=== PATIENT | female | born 1970 | race African-American/Black ===

== ENCOUNTER 2016-09-09 06:13 | Observation (INO) | payer OTHER ==
[~2016-09-09 06:13] MED LIST: Buffered Lidocaine 1% SYR 3ML* 3 ML/SYR SYRINGE INTRADERM ONE
[2016-09-09] MEDS ORDERED: Scopolamine 1.5 mg* PATCH ONE (06:48)
[2016-09-09] MEDS ORDERED: Dexamethasone IV* 4 MG/ML 1 ML (4 MG) ONE (06:48)
[2016-09-09] MEDS ORDERED: ceFAZolin 2 GM PREMIX (*) 2 GM/50 ML BAG IVPB ONE (06:48)
[2016-09-09] MEDS ORDERED: Ondansetron INJ* 2 MG/ML VIAL ONE (06:48)
[2016-09-09] MEDS ORDERED: Heparin VIAL(*) 5000 UNITS/ML VIAL (FIVE THOUSAND) ONE ×2 (06:48→15:18)
[2016-09-09] MEDS ORDERED: Midazolam* 1 MG/ML 2 ML VIAL (2 MG) ONE ×2 (07:29→08:09)
[2016-09-09] MEDS ORDERED: fentaNYL* 50 MCG/ML 2 ML VIAL (100 MCG VIAL) ONE ×6 (07:29→15:50)
[2016-09-09] MEDS ORDERED: Rocuronium* 10 MG/ML VIAL ONE (08:09)
[2016-09-09] MEDS ORDERED: Bupivacaine 0.25% EPI 200,000* 30 ML SDV ONE (08:43)
[2016-09-09] MEDS ORDERED: Famotidine IV* 10 MG/ML 2 ML (20 mg) ONE (09:27)
[2016-09-09] MEDS ORDERED: EPHEDrine (Pressors)* 50 MG/ML VIAL ONE (09:27)
[2016-09-09] MEDS ORDERED: Lidocaine 2% PF * 5 ML VIAL ONE (09:27)
[2016-09-09] MEDS ORDERED: Propofol* 10 MG/ML 20 ML BTL IV PUSH ONE (09:27)
[2016-09-09] MEDS ORDERED: Ondansetron INJ* 2 MG/ML VIAL IV PRN ×2 (09:43→16:27)
[2016-09-09] MEDS ORDERED: Levalbuterol 0.63MG/3ML NEB INH PRN (09:43)
[2016-09-09] MEDS ORDERED: Nalbuphine* 20 MG/ML 1 ML VIAL IV PRN (09:43)
[2016-09-09] MEDS ORDERED: PROCHLORPERAZINE INJ 5 MG/ML 2 ML VIAL IV PRN (09:43)
[2016-09-09] MEDS ORDERED: DiMENhydriNATE IV* 50 MG/ML VIAL IV PUSH PRN (09:43)
[2016-09-09] MEDS ORDERED: Acetaminophen TAB* 325 MG PO PRN ×2 (09:43→16:26)
[2016-09-09] MEDS ORDERED: Gabapentin CAP(*) 300 MG PO SCH (10:00)
[2016-09-09] MEDS ORDERED: oxyCODONE/Acetamin 5/325 MG* TAB ONE ×2 (12:54→13:10)
[2016-09-09] MEDS: fentaNYL* 50 MCG/ML 2 ML VIAL (100 MCG VIAL) IV PRN ×5 (13:03→15:45)
[2016-09-09] MEDS: oxyCODONE/Acetamin 5/325 MG* TAB PO PRN ×4 (13:04→22:52)
[2016-09-09] MEDS ORDERED: oxyCODONE TAB* 5 MG TAB ONE ×2 (13:49→14:01)
[2016-09-09] MEDS: oxyCODONE TAB* 5 MG TAB PO PRN ×2 (13:50→14:02)
[2016-09-09] MEDS ORDERED: diPHENhydraMINE IV* 50 MG/ML 1 ml VIAL (BENADRYL) IV PRN ×2 (16:26)
[2016-09-09] MEDS ORDERED: diPHENhydraMINE PO* 25 MG PO PRN ×2 (16:27)
[2016-09-09] MEDS ORDERED: Al Hydrox/Mg Hydrox/Simet LIQ* 30 ML UDC PO PRN (16:28)
[2016-09-09] MEDS ORDERED: Magnesium Hydroxide LIQ* 30 ML UDC PO PRN (16:28)
[2016-09-09] MEDS ORDERED: NS 0.9% 1000 ML* 1,000 ML IV SCH (16:30)
[2016-09-09] MEDS ORDERED: HYDROmorphone INJ* 1 MG/ML CARPUJECT SYRINGE ONE (16:32)
[2016-09-09] MEDS: HYDROmorphone INJ* 1 MG/ML CARPUJECT SYRINGE IV PRN ×3 (16:39→22:56)
[2016-09-09] MEDS ORDERED: Ketoconazole 2 % CREAM (NF) 30 GM TUBE TOPICAL PRN (17:01)
[2016-09-09] MEDS ORDERED: ALPRAZolam TAB* 0.5 MG PO PRN (17:05)
[2016-09-09] MEDS ORDERED: SELENIUM SULFIDE 2.5% TOPICAL PRN (17:05)
[2016-09-09] MEDS ORDERED: Levalbuterol HFA INHALER* 1 PUFF MDI INH PRN (17:05)
[2016-09-09] MEDS: Heparin VIAL(*) 5000 UNITS/ML VIAL (FIVE THOUSAND) SUBCUT SCH (22:51)
[2016-09-10] MEDS: HYDROmorphone INJ* 1 MG/ML CARPUJECT SYRINGE IV PRN ×6 (01:00→11:50)
[2016-09-10] MEDS: oxyCODONE TAB* 5 MG TAB PO PRN ×3 (02:56→11:47)
[2016-09-10] MEDS: oxyCODONE/Acetamin 5/325 MG* TAB PO PRN ×3 (02:57→11:47)
[2016-09-10] MEDS: Heparin VIAL(*) 5000 UNITS/ML VIAL (FIVE THOUSAND) SUBCUT SCH (05:05)
[2016-09-10 08:05] VITALS: BP 102/64
[2016-09-10] MEDS ORDERED: Multivitamins/Minerals TAB PO SCH (09:00)
[2016-09-10] MEDS ORDERED: Ferrous Sulfate TAB* 325 MG PO SCH (09:00)
[2016-09-10] MEDS ORDERED: Atenolol TAB* 25 MG PO SCH (09:00)
[2016-09-10] MEDS ORDERED: Citalopram TAB* 20 MG PO SCH (09:00)
[2016-09-10] MEDS ORDERED: Ascorbic Acid TAB* 500 MG PO SCH (09:00)
--- NOTE | 2016-09-26 04:10 | DS ---
CC: Dr. Hollis Lugo DISCHARGE SUMMARY: DATE OF ADMISSION: 09/09/16 DATE OF DISCHARGE: 09/10/16 PRIMARY DIAGNOSIS: Bilateral symptomatic breast hypertrophy. SECONDARY DIAGNOSIS: Postoperative pain. SUMMARY: The patient is a 45-year-old woman who underwent bilateral reduction mammoplasty for treat ment of bilateral symptomatic breast hypertrophy on 09/09/16. Over 1000 g was removed from each isra st. The patient was on preoperative Percocet because of chronic pain. Postoperatively, she had dif ficulty obtaining adequate pain control in the recovery room and for this reason was kept overnight in the hospital for observation because she was requiring significant doses of intravenous narcotics to obtain adequate pain control. By the following morning, her pain was under satisfactory control and she was able to be discharged home on oral pain medication with arrangements made for followup in the office. Dr. Hollis Lugo, her primary care physician, is managing her postoperative pain a s an outpatient. She was given instructions including activity level, wound care, medication, and fo [facility] [id number]/[facility] #: [id number]
== END 2016-09-10 14:00 | disposition home or self-care (01) ==
LOC: OR 06:13 → INTOOBSV 16:09 → SSU 16:09
PROVIDERS: ADMIT Plastic Surgery; ATTEND Plastic Surgery
PROC: 0HBV0ZZ Excision of Bilateral Breast, Open Approach (ICD-10-PCS; principal; 2016-09-09 07:45)
DX: N62 Hypertrophy of breast (principal); M17.0 Bilateral primary osteoarthritis of knee; M47.9 Spondylosis, unspecified; Z86.718 Personal history of other venous thrombosis and embolism; Z88.8 Allergy status to other drugs, medicaments and biological substances; Z79.899 Other long term (current) drug therapy
CPT/HCPCS: 88305; 96372; A9270-GY; G0378; J0690; J1100; J1170; J1644; J2250; J2405; J2704; J3010

== ENCOUNTER 2016-09-17 20:04 | Emergency (ER) | payer OTHER ==
[2016-09-17] MEDS ORDERED: HYDROmorphone INJ* 2 MG/ML CARPUJECT SYRINGE IM ONE (22:27)
[2016-09-17] MEDS ORDERED: Ondansetron ODT TAB* 4 MG PO ONE (22:27)
[2016-09-17] MEDS ORDERED: HYDROmorphone TAB* 4 MG PO ONE (22:28)
[2016-09-17] MEDS ORDERED: Ondansetron INJ* 2 MG/ML VIAL ONE (22:40)
--- NOTE | 2016-09-17 23:06 | ED ---
Castro Velazquez Alok, scribed for Armen Stanton MD on 09/17/16 at 2224 . Complex/Multi-Sys Presentation - HPI Summary HPI Summary: 45 y/o female presents to the ED with a complaint of of nausea and chills following a mammaplasty one week ago. Dr. Acevedo was her surgeon. Pt states that dark, yellow and green drainage was found after removing her dressings. Pt denies fever. She also adds that she ran out of her Dilaudid prescription this week as well. - History Of Current Complaint Chief Complaint: EDNauseaVomitDiarrh Time Seen by Provider: 09/17/16 21:31 Hx Obtained From: Patient Onset/Duration: Gradual Onset, Lasting Hours, Still Present Timing: Constant Severity Currently: Moderate Severity Initially: Moderate Location: Negative Aggravating Factor(s): none Alleviating Factor(s): none Associated Signs And Symptoms: Positive: Nausea, Other - chills. Negative: Fever - Allergies/Home Medications Allergies/Adverse Reactions: Allergies Allergy/AdvReac Type Severity Reaction Status Date / Time Shellfish Allergy Allergy Severe Anaphylatic Verified 09/09/16 06:56 Shock Ketorolac Tromethamine Allergy Intermediate Itching Verified 09/09/16 06:56 [From Toradol] Tramadol Allergy Intermediate Itching Verified 09/09/16 06:56 PMH/Surg Hx/FS Hx/Imm Hx Endocrine/Hematology History: Denies: Hx Anticoagulant Therapy, Hx Blood Disorders Cardiovascular History: Reports: Hx Coronary Artery Disease - HEART CATH 2000 [place], FOLLOWED BY DR LUGO, Other Cardiovascular Problems/Disorders - HX VTACH, CARDIAC CATH, BLOOD CLOTS DURING LL 1990 Denies: Hx Pacemaker/ICD Respiratory History: Reports: Hx Asthma - INHALER PRN, WILL BRING DOS GI History: Reports: Hx Gastroesophageal Reflux Disease - not active at this time, Other GI Disorders - HX OF STOMACH ULCER, UMBILICAL HERNIA History: Reports: Other Problems/Disorders - PARTIAL HYSTERECTOMY 2009 Musculoskeletal History: Reports: Hx Arthritis - BACK, HANDS, HIPS, RIGHT KNEE, Hx Back Problems, Hx Bursitis Sensory History: Reports: Hx Contacts or Glasses Denies: Hx Hearing Aid Opthamlomology History: Reports: Hx Contacts or Glasses Neurological History: Reports: Other Neuro Impairments/Disorders - 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 PARTIAL HYSTERECTOMY 2008 [place]. RIGHT KNEE REPAIR 2006 [facility] [place]. RIGHT KNEE REPAIR 2007, 2008 [place]. UMBILICAL HERNIA REPAIR 2009 [facility] [place]. CARDIAC CATHERIZATION 2000 [place] Hx Anesthesia Reactions: No - Immunization History Date of Tetanus Vaccine: UTD Date of Influenza Vaccine: UTD Infectious Disease History: No Infectious Disease History: Denies: Hx Clostridium Difficile, Hx Hepatitis, Hx Human Immunodeficiency Virus (HIV), Hx of Known/Suspected MRSA, Hx Shingles, History Other Infectious Disease, Traveled Outside the in Last 30 Days - Family History Family History: No FHx breast cancer - Social History Lives: With Family - Alcohol Use: Rare Alcohol Amount: 2 BEERS/MONTH Hx Substance Use: No Substance Use Type: Reports: None Hx Tobacco Use: No Smoking Status (MU): Never Smoked Tobacco Have You Smoked in the Last Year: No Review of Systems Positive: Chills. Negative: Fever Positive: Nausea Positive: Other - discharge from surgical site All Other Systems Reviewed And Are Negative: Yes Physical Exam - Summary Physical Exam Summary: General: Well-appearing, no pain distress Skin: Warm, color reflects adequate perfusion, dry. Surgical site: right breast no drainage, edges well approximated, no erythema, below areola portion of wound glue removed Head/Face: Normal Eyes: EOMI, BAO ENT: Normal Neck: Supple, nontender Respiratory: CTA, breath present Cardiovascular: RRR Abdominal: Nontender, soft Bowel: Present Musc: Normal; strength/ROM intact Neuro: Normal; sensory/motor intact, A&Ox3 Psych: Affect/mood appropriate Triage Information Reviewed: Yes Vital Signs On Initial Exam: Initial Vitals Temp Pulse Resp BP Pulse Ox 98.5 F 70 20 116/73 99 09/17/16 20:07 09/17/16 20:07 09/17/16 20:07 09/17/16 20:07 09/17/16 20:07 Vital Signs Reviewed: Yes Diagnostics - Vital Signs Vital Signs Temp Pulse Resp BP Pulse Ox 09/17/16 20:07 98.5 F 70 20 116/73 99 - Laboratory Lab Statement: Any lab studies that have been ordered have been reviewed, and results considered in the medical decision making process. Complex Multi-Symp Course/Dx Assessment/Plan: SURGICAL WOUND IS INTACT/NO DRAINAGE/NO ODOR/NO ERYTHEMA. SOME OF THE SURGICAL WOUND GLUE HAS BEEN PULLED UP. DISCUSSED WITH DR ACEVEDO. NO FEVER. NO LABS AT THIS TIME. F/U 09/19/[address] ACEVEDO. DISCHARGE HOME STABLE. RX DILAUDID PO WRITTEN. - Diagnoses Provider Diagnoses: Pain at surgical site - Physician Notifications Discussed Care Of Patient With: Dr. Acevedo (Plastic surgeon) @ 22:09 - discussed state of pt and follow up appointment with Dr. Acevedo in two days Discharge - Discharge Plan Condition: Stable Disposition: HOME Prescriptions: HYDROmorphone TAB* [Dilaudid TAB*] 4 mg PO Q6H PRN #15 tab MDD 4 PRN Reason: Pain Ondansetron ODT TAB* [Zofran Odt TAB*] 4 mg PO Q6H PRN #10 tab.odt PRN Reason: Nausea Patient Education Materials: Chronic Wound Care (ED) Referrals: Hollis Lugo MD [Primary Care Provider] - Additional Instructions: FOLLOW UP WITH YOUR PRIMARY CARE DOCTOR. FOLLOW UP WITH DR ACEVEDO. CALL HIS OFFICE TOMORROW TO BE SEEN ON August. CONTINUE TO KEEP THE WOUNDS CLEAN WITH SOAP AND WATER AND APPLY ANTIBIOTIC OINTMENT. RETURN TO THE EMERGENCY DEPARTMENT FOR ANY WORSENING OF YOUR CONDITION OR QUESTIONS OR CONCERNS. The documentation as recorded by the Castro romo Alok accurately reflects the service I personally performed and the decisions made by me, Armen Stanton MD.
[2016-09-18 04:07] VITALS: BP 118/70
== END 2016-09-17 22:53 | disposition home or self-care (01) ==
LOC: ED 20:04
DX: R11.0 Nausea (principal); R68.83 Chills (without fever)
CPT/HCPCS: 96374; 96375; 99282; A9270-GY; J1170; J2405

== ENCOUNTER 2016-09-29 17:58 | Emergency (ER) | payer OTHER ==
--- NOTE | 2016-09-29 18:49 | RAD ---
INDICATION: Palpitations COMPARISON: July 15, 2016 TECHNIQUE: An AP portable view obtained at 1830 hours is submitted. FINDINGS: Bones/Soft Tissues: There are no acute bony findings. Cardiomediastinal: The cardiomediastinal silhouette is normal. Lungs: There are no infiltrates. Pleura: There are no pleural effusions. Other: None IMPRESSION: NO ACTIVE DISEASE.
[2016-09-29 19:05] LABS: Hematocrit 41 % (35-47); Hemoglobin 12.8 g/dl (12.0-16.0); Mean Corpuscular HGB Conc 32 g/dl (31-36); Mean Corpuscular Hemoglobin 27 pg (27-31); Mean Corpuscular Volume 84 fL (80-97); Mean Platelet Volume 9 um3 (7.4-10.4); Red Blood Count 4.81 10^6/ul (4.0-5.4); Red Cell Distribution Width 14 % (10.5-15); White Blood Count 6.4 10^3/ul (3.5-10.8)
[2016-09-29 19:29] LABS: Albumin 4.1 g/dL (3.2-5.2); BUN/Creatinine Ratio 12.8 (8-20); Calcium 9.3 mg/dL (8.6-10.3); EGFR African American 82.4 (>60); EGFR Non-African American 64.1 (>60); Globulin 3.4 g/dL (2-4); Potassium 3.9 mmol/L (3.5-5.0); Total Bilirubin 0.3 mg/dL (0.2-1.0); Total Protein 7.5 g/dL (6.4-8.9)
[2016-09-29] MEDS ORDERED: oxyCODONE/Acetamin 10/325(NF) TAB PO PRN (19:37)
[2016-09-29 19:53] LABS: T4 7.72 g/dL (6.09-12.23)
[2016-09-29 19:54] LABS: TSH (Thyroid Stimulating Horm) 2.11 mcIU/mL (0.34-5.60)
[2016-09-29] MEDS ORDERED: oxyCODONE/Acetamin 5/325 MG* TAB ONE (20:03)
[2016-09-29] MEDS ORDERED: oxyCODONE TAB* 5 MG TAB ONE (20:03)
[2016-09-29] MEDS ORDERED: LORazepam INJ* 2 MG/ML 1 ML VIAL IV PUSH ONE ×2 (20:17→21:34)
[2016-09-29] MEDS ORDERED: Iohexol 350* (CONTRAST) 500 ML MDV IV ONE (20:43)
[2016-09-29 20:59] VITALS: BP 126/67
[2016-09-29] MEDS ORDERED: oxyCODONE/Acetamin 5/325 MG* TAB PO PRN (21:18)
[2016-09-29] MEDS ORDERED: oxyCODONE TAB* 5 MG TAB PO PRN (21:18)
--- NOTE | 2016-09-29 21:46 | RAD ---
INDICATION: Chest pain. Short of breath. Evaluate for pulmonary embolus. COMPARISON: CTA chest March 15, 2013. TECHNIQUE: Axial source images were obtained from the thoracic inlet to the hemidiaphragms following administration of [address] angiographic technique was utilized. Coronal and sagittal reconstructed images were acquired. CHEST FINDINGS: Neck/thyroid: The visualized neck to include the thyroid appear normal. Chest wall: There are no acute abnormalities of the bony thorax. There are patchy parenchymal asymmetries in each breast with skin thickening. By report the patient has had reduction mammoplasty within the last month which likely accounts for these findings. There is no supraclavicular, infraclavicular, or axillary lymphadenopathy. Lungs : There are no pulmonary parenchymal masses or infiltrates. The pulmonary interstitium appears normal. There are no endobronchial lesions. Cardiomediastinal structures: There is no CT evidence of acute pulmonary embolic disease. The heart is normal in size. There is no pericardial effusion. There is no evidence of aortic aneurysm or dissection. There is no mediastinal or hilar adenopathy. The esophagus appears normal. Pleura : There are no pleural-based masses or effusions. Other: None. IMPRESSION: NO CT EVIDENCE OF ACUTE PULMONARY EMBOLIC DISEASE.
--- NOTE | 2016-09-30 10:25 | ED ---
Antonette Velazquez Erika, scribed for Luis Mullins MD on 09/29/16 at 1837 . Palpitations / Dysrhythmia - HPI Summary HPI Summary: Patient is a 45-year-old female presenting to the ED with a CC of palpitations. Patient reports that palpitations started at 02:00 today, and resolved after 30 minutes. She used her blood pressure machine, which showed that she did not have an irregular rhythm. Patient denies associated lightheadedness, SOB, and chest pain. Pt also reports spasms in her scalp and back. She reports that she has not been sleeping well due to loud neighbors. Pt has also been lying down more than usual due to breast reduction surgery on 09/09/2016. She was taking blood thinners after the surgery, but is not anymore. Hx V Tach. Hx anxiety - took Xanax today, which did not alleviate the symptoms. - History of Current Complaint Chief Complaint: EDDysrhythmPalp Time Seen by Provider: 09/29/16 18:17 Hx Obtained From: Patient, Family/Dimension Quarry Supervisor - Onset/Duration: Gradual Onset, Lasting Minutes - 30 minutes, Resolved Timing: Constant Severity Initially: Moderate Severity Currently: None Character: Pounding Associated Signs & Symptoms: Negative - Allergy/Home Medications Allergies/Adverse Reactions: Allergies Allergy/AdvReac Type Severity Reaction Status Date / Time Shellfish Allergy Allergy Severe Anaphylatic Verified 09/09/16 06:56 Shock Ketorolac Tromethamine Allergy Intermediate Itching Verified 09/09/16 06:56 [From Toradol] Tramadol Allergy Intermediate Itching Verified 09/09/16 06:56 PMH/Surg Hx/FS Hx/Imm Hx Endocrine/Hematology History: Denies: Hx Anticoagulant Therapy, Hx Blood Disorders Cardiovascular History: Reports: Hx Coronary Artery Disease - HEART CATH 2000 [place], FOLLOWED BY DR LUGO, Other Cardiovascular Problems/Disorders - HX VTACH, CARDIAC CATH, BLOOD CLOTS DURING [place] 1990 Denies: Hx Pacemaker/ICD Respiratory History: Reports: Hx Asthma - INHALER PRN, WILL BRING DOS GI History: Reports: Hx Gastroesophageal Reflux Disease - not active at this time, Other GI Disorders - HX OF STOMACH ULCER, UMBILICAL HERNIA History: Reports: Other Problems/Disorders - PARTIAL HYSTERECTOMY 2008 Musculoskeletal History: Reports: Hx Arthritis - BACK, HANDS, HIPS, RIGHT KNEE, Hx Back Problems, Hx Bursitis Sensory History: Reports: Hx Contacts or Glasses Denies: Hx Hearing Aid Opthamlomology History: Reports: Hx Contacts or Glasses Neurological History: Reports: Other Neuro Impairments/Disorders - 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 PARTIAL HYSTERECTOMY 2008 [place]. RIGHT KNEE REPAIR 2006 [facility] [place]. RIGHT KNEE REPAIR 2007, 2008 [place]. UMBILICAL HERNIA REPAIR 2009 [facility] [place]. CARDIAC CATHERIZATION 2000 [facility] Anesthesia Reactions: No - Immunization History Date of Tetanus Vaccine: UTD Date of Influenza Vaccine: UTD Infectious Disease History: No Infectious Disease History: Denies: Hx Clostridium Difficile, Hx Hepatitis, Hx Human Immunodeficiency Virus (HIV), Hx of Known/Suspected MRSA, Hx Shingles, History Other Infectious Disease, Traveled Outside the [place] in Last 30 Days - Family History Family History: No FHx breast cancer - Social History Occupation: Employed Full-time Lives: With Family Alcohol Use: Rare Alcohol Amount: 2 BEERS/MONTH Hx Substance Use: No Substance Use Type: Reports: None Hx Tobacco Use: No Smoking Status (MU): Never Smoked Tobacco Have You Smoked in the Last Year: No Review of Systems Positive: Palpitations. Negative: Chest Pain Negative: Shortness Of Breath Musculoskeletal: Other - spasms in scalp and back Positive: Anxious - with lack of sleep All Other Systems Reviewed And Are Negative: Yes Physical Exam - Summary Physical Exam Summary: VITAL SIGNS: Reviewed. GENERAL: Patient is a well developed and nourished female who is lying comfortable in the stretcher. Patient is not in any acute respiratory distress. HEAD AND FACE: No signs of trauma. No ecchymosis, hematomas or skull depressions. No sinus tenderness. EYES: PERRLA, EOMI x 2, No injected conjunctiva, no nystagmus. EARS: Hearing grossly intact. Ear canals and tympanic membranes are within normal limits. MOUTH: Oropharynx within normal limits. NECK: Supple, trachea is midline, no adenopathy, no JVD, no carotid bruit, no c- spine tenderness, neck with full ROM. CHEST: Symmetric, no tenderness at palpation LUNGS: Clear to auscultation bilaterally. No wheezing or crackles. CVS: Regular rate and rhythm, S1 and S2 present, no murmurs or gallops appreciated. ABDOMEN: Soft, non-tender. No signs of distention. No rebound no guarding, and no masses palpated. Bowel sounds are normal. EXTREMITIES: FROM in all major joints, no edema, no cyanosis or clubbing. NEURO: Alert and oriented x 3. No acute neurological deficits. Speech is normal and follows commands. SKIN: Dry and warm Triage Information Reviewed: Yes Vital Signs On Initial Exam: Initial Vitals Temp Pulse Resp BP Pulse Ox 98.3 F 58 16 111/72 100 09/29/16 18:09 09/29/16 18:09 09/29/16 18:09 09/29/16 18:09 09/29/16 18:09 Vital Signs Reviewed: Yes Diagnostics - Vital Signs Vital Signs Temp Pulse Resp BP Pulse Ox 09/29/16 18:09 98.3 F 58 16 111/72 100 - Laboratory Result Diagrams: 09/29/16 18:50 09/29/16 18:50 Lab Statement: Any lab studies that have been ordered have been reviewed, and results considered in the medical decision making process. - Radiology CXR Radiology Interpretation Completed By: Radiologist - IMPRESSION: NO ACTIVE DISEASE. - CT CTA Chest CT Interpretation Completed By: Radiologist - IMPRESSION: NO CT EVIDENCE OF ACUTE PULMONARY EMBOLIC DISEASE. - EKG 17:59 Cardiac Rate: NL - at 62 bpm EKG Rhythm: Sinus Rhythm EKG Interpretation: No ST elevation Re-Evaluation - Re-Evaluation First Eval Re-Evaluation Time: 20:49 Comment: Discussed lab results and need for Chest CTA Course/Dx - Course Assessment/Plan: Patient is a 45-year-old female presenting to the ED with a CC of palpitations. Patient reports that palpitations started at 02:00 today, and resolved after 30 minutes. She used her blood pressure machine, which showed that she did not have an irregular rhythm. Patient denies associated lightheadedness, SOB, and chest pain. Pt also reports spasms in her scalp and back. She reports that she has not been sleeping well due to loud neighbors. Pt has also been lying down more than usual due to breast reduction surgery on . She was taking blood thinners after the surgery, but is not anymore. Hx V Tach. Hx anxiety - took Xanax today, which did not alleviate the symptoms. Bloodwork WNL except for a D dimer of 744. I decided to the D-dimer since the pt is having palpitations and had a recent surgery. CXR shows no acute pathology and EKG is NSR without ST elevation. Chest CT is negative for a PE. The pt has requested pain medication that she usually takes at home, which is Percocet 10mg, and she requested Ativan twice and was given 1 mg each time. At this point, since there are no abnormal findings, the pt will be discharged home with follow up from her PCP. The pt was instructed to return if she develops chest pain, SOB, dizziness, fevers, or chills. Patient understands and agrees. She is hemodynamically stable and A&Ox3. I discussed all the findings and test results with the patient. Patient was instructed to return to the emergency room immediately if any of the symptoms return or worsens. Plan of care was discussed with the patient and understands and agrees. All questions were answered at patient satisfaction. There were no further complaints or concerns. Lung exam before discharge: CTA B/L. Good air exchange. No wheezing or crackles heard. CVS: S1 and S2 present. No murmurs appreciated. Patient is alert and oriented x 3. Patient is hemodynamically stable. Patient will be discharged home with follow up ribbon hand in the next 2-3 days - Diagnoses Differential Diagnosis/HQI/PQRI: Positive: V-Tach, Other - arrythmia Provider Diagnoses: Palpitations, Anxiety Discharge - Discharge Plan Condition: Stable Disposition: HOME Patient Education Materials: Palpitations (ED), Anxiety (ED) Referrals: Hollis Lugo MD [Primary Care Provider] - Additional Instructions: Please follow up with your PCP. The documentation as recorded by the Antonette romo Erika accurately reflects the service I personally performed and the decisions made by me, Luis Mullins MD.
== END 2016-09-29 22:06 | disposition home or self-care (01) ==
LOC: ED 17:58
DX: R00.2 Palpitations (principal); F41.9 Anxiety disorder, unspecified
CPT/HCPCS: 36415; 71010; 71275; 80053; 82553; 83605; 83880; 84436; 84443; 84484; 85025; 85379; 93005; 96374; 99283; A9270-GY; J2060; Q9967

== ENCOUNTER 2016-11-18 13:24 | Emergency (ER) | payer OTHER ==
[2016-11-18 15:14] VITALS: BP 132/79
--- NOTE | 2016-11-18 15:42 | UC ---
Ear Complaint HPI - HPI Summary HPI Summary: 2 DAYS OF BILATERAL EAR DISCOMFORT. r>l. HEARING IS MUFFLED. NO DRAINAGE. ALSO HAS SINUS PRESSURE, MILD KIM AND RHINITIS. NO FEVER, COUGH OR ST. NO N/V/D. - History of Current Complaint Chief Complaint: UCEar Stated Complaint: EARS,CONGEST, Time Seen by Provider: 11/18/16 15:17 Hx Obtained From: Patient Onset/Duration: Gradual Onset, Lasting Days, Still Present Severity Initially: Moderate Severity Currently: Moderate Pain Intensity: 6 Pain Scale Used: 0-10 Numeric Aggravating Factors: Nothing Alleviating Factors: Nothing Associated Signs/Symptoms: Positive: Hearing Loss - MUTED, URI Symptoms. Negative: Discharge, Foreign Body Sensation, Trauma to Ear - Allergies/Home Medications Allergies/Adverse Reactions: Allergies Allergy/AdvReac Type Severity Reaction Status Date / Time Shellfish Allergy Allergy Severe Anaphylatic Verified 11/18/16 15:06 Shock Ketorolac Tromethamine Allergy Intermediate Itching Verified 11/18/16 15:06 [From Toradol] Tramadol Allergy Intermediate Itching Verified 11/18/16 15:06 PMH/Surg Hx/FS Hx/Imm Hx Cardiovascular History Of: Reports: Cardiac Disorders - Vtach Denies: Pacemaker/ICD Respiratory History Of: Reports: Asthma - INHALER, Bronchitis - HX OF, NOT RECENTLY Psychological History Of: Reports: Anxiety, Depression Denies: Schizophrenia Other History Of: Negative For: Anticoagulant Therapy - Surgical History Surgical History: Yes Surgery Procedure, Year, and Place: CARDIAC CATHERIZATION 2000 [place]. PARTIAL HYSTERECTOMY 2008 [place]. RIGHT KNEE REPAIR 2006 [facility] [place]. RIGHT KN[place] REPAIR 2007, 2009 [place]. UMBILICAL HERNIA REPAIR 2009 [facility] [place]. CARDIAC CATHERIZATION 2000 [place] - Family History Known Family History: Positive: Hypertension Family History: No FHx breast cancer - Social History Alcohol Use: Occasionally Alcohol Amount: 2 BEERS/MONTH Substance Use Type: None Smoking Status (MU): Never Smoked Tobacco Have You Smoked in the Last Year: No - Immunization History Most Recent Influenza Vaccination: 2016 Most Recent Tetanus Shot: 2009 Most Recent Pneumonia Vaccination: 2016 Review of Systems Constitutional: Negative ENT: Ear Ache, Nasal Discharge Respiratory: Negative Cardiovascular: Negative Neurological: Headache All Other Systems Reviewed And Are Negative: Yes Physical Exam Triage Information Reviewed: Yes Appearance: Well-Appearing, No Pain Distress, Well-Nourished Vital Signs: Initial Vital Signs Temp 97.3 F 11/18/16 15:09 Pulse 57 11/18/16 15:09 Resp 16 11/18/16 15:09 BP 132/79 11/18/16 15:09 Pulse Ox 99 11/18/16 15:09 Vital Signs Reviewed: Yes Eyes: Positive: Conjunctiva Clear ENT: Positive: Hearing grossly normal, Pharynx normal, TMs normal. Negative: Muffled/hoarse voice Neck: Positive: Supple, Nontender, No Lymphadenopathy Respiratory Exam: Normal Cardiovascular Exam: Normal Abdomen Description: Positive: Soft Musculoskeletal: Positive: No Edema Neurological: Positive: Alert Psychological: Positive: Age Appropriate Behavior Skin: Negative: rashes Ear Complaint Course/Dx - Differential Dx/Diagnosis Provider Diagnoses: EUSTACHIAN TUBE DYSFUNCTION Discharge - Discharge Plan Condition: Stable Disposition: HOME Prescriptions: Fluticasone NASAL SPRAY 50MCG* [Flonase NASAL SPRAY 50MCG*] 2 spray BOTH NARES DAILY #1 btl Referrals: oHllis Lugo MD [Primary Care Provider] - If Needed Additional Instructions: CLINICALLY YOU HAVE EUSTACHIAN TUBE DYSFUNCTION. SEEK FOLLOW-UP WITH YOUR PCP IF YOUR SYMPTOMS DO NOT IMPROVE OVER THE NEXT 1-2 WEEKS. OKAY TO TRY OTC DECONGESTANTS AND ANTIHISTAMINES. STEROID NASAL SPRAY SENT TO PHARMACY TO USE NEEDED. EUSTACHIAN TUBE DYSFUNCTION What is the eustachian tube? The eustachian tube is a tube that connects the middle ear (the part of the ear behind the eardrum) to the back of the nose and throat (figure 1). Normally, the eustachian tube helps keep the air pressure inside the middle ear the same as the air pressure outside the middle ear. If there is a problem with the eustachian tube, the air pressure inside the middle ear won't be the same as the air pressure outside of it. This can damage the middle ear and cause ear pain, hearing loss, and other symptoms. "Ear barotrauma" is the medical term for when people have symptoms or damage in the middle ear because of air pressure differences. Most eustachian tube problems are not serious. They usually last only a short time and get better on their own. But eustachian tube problems sometimes lead to serious problems, such as: - A middle ear infection - A torn eardrum - Hearing loss Long-term hearing loss from eustachian tube problems can also lead to language or speech problems in children. What causes eustachian tube problems? Common causes of eustachian tube problems are: - Illnesses or conditions that make the eustachian tubes swollen or inflamed These include colds, allergies, ear infections, or sinus infections. The sinuses are hollow areas in the bones of the face. - Sudden air pressure changes Sudden air pressure changes can happen when people fly in an airplane, scuba dive, or drive in the mountains. - Growths that block the eustachian tube - Being born with an abnormal eustachian tube What are the symptoms of a eustachian tube problem? Common symptoms of a eustachian tube problem include: - Ear pain - Feeling pressure or fullness in the ear - Trouble hearing - Ringing in the ear - Feeling dizzy Should I see a doctor or nurse? See your doctor or nurse if your symptoms are severe, get worse, or if they don't go away after a few days. Will I need tests? Probably not. Your doctor or nurse should be able to tell if you have a eustachian tube problem by learning about your symptoms and doing an exam. If your symptoms are severe or last for a long time, your doctor or nurse might: - Have you see a special kind of doctor called an ear, nose, and throat doctor - Do tests to check your hearing - Do an imaging test Imaging tests can create pictures of the inside of the body. How are eustachian tube problems treated? Treatment depends on what's causing the eustachian tube problem. Depending on your individual situation, your doctor might treat you with one or more of the following: - Nose sprays - Antihistamines These medicines are usually used to treat allergies. They help stop itching, sneezing, and runny nose symptoms. - Decongestants These medicines can help with stuffy nose symptoms. - Surgery Most people do not need surgery for eustachian tube problems. But people might need surgery if their symptoms don't get better with medicines or they have severe or long-term symptoms. Antibiotics are not needed to treat eustachian tube problems.
== END 2016-11-18 15:55 | disposition home or self-care (01) ==
LOC: UCEAST 13:24
DX: H69.93 Unspecified Eustachian tube disorder, bilateral (principal); J45.909 Unspecified asthma, uncomplicated
CPT/HCPCS: 99212; G0463

== ENCOUNTER 2016-11-23 13:12 | Emergency (ER) | payer OTHER ==
[2016-11-23] MEDS ORDERED: oxyCODONE/Acetamin 5/325 MG* TAB PO ONE (15:46)
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
[2016-11-23 17:14] VITALS: BP 146/78
== END 2016-11-23 16:47 | disposition home or self-care (01) ==
LOC: ED 13:12
DX: G89.29 Other chronic pain (principal)
CPT/HCPCS: 99282; A9270-GY

== ENCOUNTER 2017-03-28 21:19 | Emergency (ER) | payer OTHER ==
[2017-03-28] MEDS ORDERED: Morphine INJ* 4 MG/ML 1 ML SYRINGE IM ONE ×2 (21:52→23:07)
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
--- NOTE | 2017-03-28 22:51 | RAD ---
INDICATION: Right foot injury. TECHNIQUE: 3 views of the right foot were obtained. FINDINGS: There is soft tissue swelling adjacent to the fifth toe. On one view there is a faint radiolucent line projecting over the distal aspect of the fifth proximal phalanx possibly representing a nondisplaced fracture. No other fractures are seen. Joint spaces appear maintained. IMPRESSION: POSSIBLE NONDISPLACED FRACTURE OF THE FIFTH PROXIMAL PHALANX.
[2017-03-28 23:29] VITALS: BP 135/87
== END 2017-03-28 23:27 | disposition home or self-care (01) ==
LOC: ED 21:19
DX: S99.921A Unspecified injury of right foot, initial encounter (principal); W22.8XXA Striking against or struck by other objects, initial encounter; Y93.9 Activity, unspecified; Y92.9 Unspecified place or not applicable
CPT/HCPCS: 96372; 99282; J2270

== ENCOUNTER 2017-06-26 05:12 | Emergency (ER) | payer OTHER ==
[2017-06-26] MEDS ORDERED: LORazepam INJ* 2 MG/ML 1 ML VIAL IV PUSH ONE (05:33)
[2017-06-26] MEDS ORDERED: Morphine INJ* 4 MG/ML 1 ML CARPUJECT IV ONE (05:33)
[2017-06-26] MEDS ORDERED: Ondansetron INJ* 2 MG/ML VIAL IV ONE (05:33)
[2017-06-26] MEDS ORDERED: HYDROmorphone INJ* 2 MG/ML CARPUJECT SYRINGE IV SLOW PU ONE (06:57)
--- NOTE | 2017-06-26 07:06 | ED ---
Adilene Velazquez Thomas, scribed for Oscar Pablo MD on 06/26/17 at 0533 . Upper Extremity Pain - HPI Summary HPI Summary: The pt is a 46 y/o F presenting to the ED c/o left arm pain for the last two hours. The pain is concentrated to her posterior upper left arm. The pain is intermittent, described as sharp, and is rated 8/10. Pt additionally c/o right neck pain and a racing heart rate. Pt denies CP and SOB. The patient has a history of Sciatica, chronic pain, arthritis, and anxiety. She is on OxyCodone 10mg PO daily. - History of Current Complaint Chief Complaint: EDExtremityUpper Stated Complaint: LEFT ARM PAIN Time Seen by Provider: 06/26/17 05:19 Hx Obtained From: Patient Onset/Duration: Started Hours Ago - 2, Still Present Timing: Intermittent Pain Location: Other: - left arm Character: Sharp Alleviating Factor(s): Nothing Associated Signs & Symptoms: Positive: Other - Right neck pain, racing heart rate. Negative: Chest Pain, SOB - Allergies/Home Medications Allergies/Adverse Reactions: Allergies Allergy/AdvReac Type Severity Reaction Status Date / Time Shellfish Allergy Allergy Severe Anaphylatic Verified 06/26/17 05:17 Shock Ketorolac Tromethamine Allergy Intermediate Itching Verified 06/26/17 05:17 [From Toradol] Tramadol Allergy Intermediate Itching Verified 06/26/17 05:17 PMH/Surg Hx/FS Hx/Imm Hx Previously Healthy: No Endocrine/Hematology History: Denies: Hx Anticoagulant Therapy, Hx Blood Disorders Cardiovascular History: Reports: Hx Coronary Artery Disease - HEART CATH 2000 [place], FOLLOWED BY DR LUGO, Other Cardiovascular Problems/Disorders - HX VTACH, CARDIAC CATH, BLOOD CLOTS DURING [facility] 1990 Denies: Hx Pacemaker/ICD Respiratory History: Reports: Hx Asthma - INHALER GI History: Reports: Hx Gastroesophageal Reflux Disease - not active at this time, Other GI Disorders - HX OF STOMACH ULCER, UMBILICAL HERNIA History: Reports: Other Problems/Disorders - PARTIAL HYSTERECTOMY 2008 Musculoskeletal History: Reports: Hx Arthritis - BACK, HANDS, HIPS, RIGHT KNEE, Hx Back Problems, Hx Bursitis Sensory History: Reports: Hx Contacts or Glasses Denies: Hx Hearing Aid Opthamlomology History: Reports: Hx Contacts or Glasses Neurological History: Reports: Other Neuro Impairments/Disorders - 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 PARTIAL HYSTERECTOMY 2009 [place]. RIGHT KNEE REPAIR 2006 [facility] [place]PA[place] 2007, 2008 [place]. UMBILICAL [place]IA [place]PA[place] [facility] [place] CATHER[place]ATION 2000 [facility] Anesthesia Reactions: No - Immunization History Date of Tetanus Vaccine: UTD Date of Influenza Vaccine: UTD Infectious Disease History: No Infectious Disease History: Denies: Hx Clostridium Difficile, Hx Hepatitis, Hx Human Immunodeficiency Virus (HIV), Hx of Known/Suspected MRSA, Hx Shingles, History Other Infectious Disease, Traveled Outside the in Last 30 Days - Family History Known Family History: Positive: Hypertension Family History: No FHx breast cancer - Social History Alcohol Use: Occasionally Alcohol Amount: 2 BEERS/MONTH Hx Substance Use: No Substance Use Type: Reports: None Hx Tobacco Use: No Smoking Status (MU): Never Smoked Tobacco Have You Smoked in the Last Year: No Review of Systems Positive: Other - Racing heart rate. Negative: Palpitations Negative: Shortness Of Breath Positive: Other - L arm pain, right-sided neck pain All Other Systems Reviewed And Are Negative: Yes Physical Exam Triage Information Reviewed: Yes Vital Signs On Initial Exam: Initial Vitals Temp Pulse Resp BP Pulse Ox 97.8 F 111 18 151/80 100 06/26/17 05:13 06/26/17 05:13 06/26/17 05:13 06/26/17 05:13 06/26/17 05:13 Vital Signs Reviewed: Yes Appearance: Positive: Well-Appearing, No Pain Distress Skin: Positive: Warm, Skin Color Reflects Adequate Perfusion, Dry Head/Face: Positive: Normal Head/Face Inspection Eyes: Positive: EOMI, BAO ENT: Positive: Normal ENT inspection, Other - Moist mucous membranes. Neck: Positive: Supple, Nontender, Other: - No carotid bruit. No stridor. Respiratory/Lung Sounds: Positive: Clear to Auscultation, Breath Sounds Present , Other - She is satting 98 on pulse oximetry. Cardiovascular: Positive: Pulses are Symmetrical in both Upper and Lower Extremities, Tachycardia, Other - Regular rhythm on the monitor. No gallop.. Negative: Murmur, Rub Abdomen Description: Positive: Nontender, Soft Bowel Sounds: Positive: Present Musculoskeletal: Positive: Normal, Strength/ROM Intact. Negative: Edema Left, Edema Right Neurological: Positive: Normal, Sensory/Motor Intact, Alert, Oriented to Person Place, Time, Other - Normal sensation and actuary in extremities. - Tony Coma Scale Coma Scale Total: 15 Diagnostics - Vital Signs Vital Signs Temp Pulse Resp BP Pulse Ox 06/26/17 05:25 19 06/26/17 05:13 97.8 F 111 18 151/80 100 - Laboratory Diagnostic Studies Comment: labs pending at discharge Lab Statement: Any lab studies that have been ordered have been reviewed, and results considered in the medical decision making process. - Radiology CXR Xray Interpretation: No Acute Changes - No acute infiltrate. Normal mediastinum. Radiology Interpretation Completed By: ED Physician - EKG 05:41 Cardiac Rate: NL EKG Rhythm: Sinus Rhythm - at 94 BPM EKG Interpretation: Normal [place]. Normal Intervals. Normal ST Segments. Re-Evaluation - Re-Evaluation First Eval Re-Evaluation Time: 06:57 Change: Unchanged Comment: The patient states that the morhpine does not alleviate her pain and that the only medication that relieves her pain is Dilaudid. Course/Dx - Course Course Of Treatment: Pt with hx of chronic pain. Sx confined to elbow/forearm area. ECG nl. Pt tx for pain but got angry and said only dilaudid would help her. She had complained that she would get worse without it. It became clear that dependency is a butcher motivator of visit. Pt given dialudid and discharged happy. She likely has some radiculopathy related to chronic arthritis. - Diagnoses Provider Diagnoses: Cervical radiculopathy, Chronic pain syndrome, Opiate dependence Discharge - Discharge Plan Condition: Improved Disposition: HOME Prescriptions: predniSONE TAB* [Deltasone TAB*] 50 mg PO DAILY #3 tab Patient Education Materials: Cervical Radiculopathy (ED) Referrals: Hollis Lugo MD [Primary Care Provider] - 3 Days Additional Instructions: Call your doctor today to follow up. Return if worse, new symptoms or other concerns. Use your prescribed medications to control your pain. The documentation as recorded by the Adilene romo Thomas accurately reflects the service I personally performed and the decisions made by me, Oscar Pablo MD.
[2017-06-26 07:10] LABS: Hematocrit 40 % (35-47); Hemoglobin 12.9 g/dl (12.0-16.0); Mean Corpuscular HGB Conc 33 g/dl (31-36); Mean Corpuscular Hemoglobin 28 pg (27-31); Mean Corpuscular Volume 85 fL (80-97); Mean Platelet Volume 9 um3 (7.4-10.4); Red Blood Count 4.67 10^6/ul (4.0-5.4); Red Cell Distribution Width 13 % (10.5-15); White Blood Count 10.6 10^3/ul (3.5-10.8)
[2017-06-26 07:21] LABS: BUN/Creatinine Ratio 10.7 (8-20); Calcium 9.8 mg/dL (8.6-10.3); EGFR African American 93.5 (>60); EGFR Non-African American 72.7 (>60); Potassium 3.7 mmol/L (3.5-5.0)
[2017-06-26 07:23] LABS: Troponin I 0.01 ng/mL (<0.04)
[2017-06-26 07:51] VITALS: BP 122/74
--- NOTE | 2017-06-26 08:21 | RAD ---
INDICATION: LEFT arm pain. Asthma. Costochondritis. History of bilateral breast reduction. COMPARISON: December 04, 2016 TECHNIQUE: Dual energy PA and routine lateral views of the chest were obtained. REPORT: Clear lungs and pleural spaces. Negative for pneumothorax. The heart, pulmonary vasculature, and mediastinal contours are unremarkable. Unremarkable osseous structures and soft tissue contours. IMPRESSION: No evidence for acute intrathoracic disease.
== END 2017-06-26 07:40 | disposition home or self-care (01) ==
LOC: ED 05:12
DX: M54.2 Cervicalgia (principal); G89.4 Chronic pain syndrome; F11.20 Opioid dependence, uncomplicated
CPT/HCPCS: 36415; 71020; 80048; 84484; 85025; 93005; 99283; J1170; J2060; J2270; J2405

== ENCOUNTER 2017-06-26 07:42 | Emergency (ER) | payer OTHER ==
[2017-06-26 08:01] VITALS: BP 135/83
[2017-06-26] MEDS ORDERED: Diazepam TAB(*) 5 MG PO ONE (09:20)
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
--- NOTE | 2017-06-26 09:57 | RAD ---
INDICATION: Neck pain COMPARISON: CT cervical spine April 14, 2009 TECHNIQUE: Routine five-view imaging was performed FINDINGS: Bones: There are no acute bony findings. There are arthritic changes consisting of endplate sclerosis and marginal osteophyte formation at C4-C6.. Craniocervical junction: The odontoid and atlantodental interval are normal. Alignment: Normal Disc spaces: Moderate narrowing C5-C6. The remaining disc spaces are well-maintained The disc spaces are well-maintained Soft tissues: The prevertebral soft tissues are normal. IMPRESSION: MID CERVICAL SPINE DEGENERATIVE SPURRING AND DEGENERATIVE DISC DISEASE C5-C6.
--- NOTE | 2017-06-26 10:00 | RAD ---
Indication: Chronic neck pain with radiation to the LEFT shoulder. Decreased range of motion. Comparison: March 18, [address] March 23, 2013 chest radiograph. Technique: Internal rotation AP, external rotation Grashey, scapular Y, axillary views LEFT shoulder Report: Normal acromioclavicular and glenohumeral joint alignment. Negative for fracture. Moderately severe osteophytosis with associated subchondral sclerosis and cystic change at the acromioclavicular joint. Negative for glenohumeral joint space narrowing. Medullary lesion at the proximal metaphysis of the humerus with chondroid pattern of matrix calcification without suspicious interval change compared with the 2013 chest radiograph. Negative for stigmata of calcific tendinopathy. Unremarkable soft tissue contours. IMPRESSION: 1. Moderately severe osteoarthritis of the AC joint. 2. Chondroid matrix medullary lesion at the humeral neck without significant interval change compared with the 2013 exam consistent with an enchondroma.
== END 2017-06-26 11:02 | disposition home or self-care (01) ==
LOC: ED 07:42
DX: M50.30 Other cervical disc degeneration, unspecified cervical region (principal); M19.011 Primary osteoarthritis, right shoulder
CPT/HCPCS: 72040; 99282; A9270-GY

== ENCOUNTER 2017-10-12 20:32 | Emergency (ER) | payer OTHER ==
[2017-10-12] MEDS ORDERED: NS 0.9% 1000 ML* 1,000 ML IV ONE (21:55)
[2017-10-12] MEDS ORDERED: Albuterol 2.5 MG/3 ML NEB.SOL* (0.083%) INH ONE (21:55)
[2017-10-12] MEDS ORDERED: Albuterol/Ipratropium NEB.SOL* Albuterol 2.5 MG/Ipratropium 0.5 MG 3 ML INH ONE (21:55)
[2017-10-12] MEDS ORDERED: Ketorolac INJ* 30 MG/ML 1 ML VIAL IV PUSH ONE (21:57)
[2017-10-12] MEDS ORDERED: Codeine TAB* 30 MG PO ONE (21:59)
[2017-10-12] MEDS ORDERED: Morphine INJ* 4 MG/ML 1 ML SYRINGE (NEW SYRINGE VERSION) ONE (22:50)
[2017-10-12] MEDS ORDERED: Morphine INJ* 4 MG/ML 1 ML SYRINGE (NEW SYRINGE VERSION) IV ONE (22:53)
[2017-10-12 22:58] LABS: ABS Basophils 0.1 10^3/ul (0-0.2); ABS Eosinophils 0.2 10^3/ul (0-0.6); ABS Lymphocytes 1.8 10^3/ul (1.0-4.8); ABS Monocytes 0.8 10^3/ul (0-0.8); ABS Neutrophils 3.8 10^3/ul (1.5-7.7); ABS Nucleated RBC 0 10^3/ul; Eosinophil % 2.6 % (0-6); Hematocrit 38 % (35-47); Hemoglobin 12.5 g/dl (12.0-16.0); Lymphocyte % 26.9 % (25-47); Mean Corpuscular HGB Conc 33 g/dl (31-36); Mean Corpuscular Hemoglobin 28 pg (27-31); Mean Corpuscular Volume 86 fL (80-97); Mean Platelet Volume 9 um3 (7.4-10.4); Nucleated Red Blood Cells % 0; Platelet Count 265 10^3/ul (150-450); Red Blood Count 4.42 10^6/ul (4.0-5.4); Red Cell Distribution Width 13 % (10.5-15); White Blood Count 6.6 10^3/ul (3.5-10.8)
[2017-10-12 23:03] LABS: EGFR Non-African American 79.2 (>60)
--- NOTE | 2017-10-13 00:07 | ED ---
Adilene Velazquez Thomas, scribed for Pascual Ford MD on 10/12/17 at 2159 . Influenza-Like Illness - HPI Summary HPI Summary: The patient is a 46 year old female complaining of a cough, generalized weakness , malaise, and chills for the last three weeks. She reports difficulty breathing for the last two days. She complains of an occasional fever and sweats. She has been taking Mucinex. Past medical history includes asthma. - History of Current Complaint Chief Complaint: EDFluSymptoms Time Seen by Provider: 10/12/17 21:49 Hx Obtained From: Patient Onset/Duration: Lasting Weeks, Still Present Severity: Moderate Associated Signs & Symptoms: Fever - afebrile in ED, F/C, Cough - Allergy/Home Medications Allergies/Adverse Reactions: Allergies Allergy/AdvReac Type Severity Reaction Status Date / Time ketorolac [From Toradol] Allergy Itching Verified 10/12/17 20:40 pregabalin [From Lyrica] Allergy Edema Verified 10/12/17 20:40 shellfish derived Allergy Anaphylatic Verified 10/12/17 20:40 Shock tramadol Allergy Itching Verified 10/12/17 20:40 PMH/Surg Hx/FS Hx/Imm Hx Endocrine/Hematology History: Denies: Hx Anticoagulant Therapy, Hx Blood Disorders Cardiovascular History: Reports: Hx Coronary Artery Disease - HEART CATH 2000 [place], FOLLOWED BY DR LUGO, Other Cardiovascular Problems/Disorders - HX VTACH, CARDIAC CATH, BLOOD CLOTS DURING [facility] 1990 Denies: Hx Pacemaker/ICD Respiratory History: Reports: Hx Asthma - INHALER GI History: Reports: Hx Gastroesophageal Reflux Disease - not active at this time, Other GI Disorders - HX OF STOMACH ULCER, UMBILICAL HERNIA History: Reports: Other Problems/Disorders - PARTIAL HYSTERECTOMY 2008 Musculoskeletal History: Reports: Hx Arthritis - BACK, HANDS, HIPS, RIGHT KNEE, Hx Back Problems - thoracic and lumbar spine, Hx Bursitis, Other Musculoskeletal History - pt followed by Dr. Lugo and Dr. 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 PARTIAL HYSTERECTOMY 2008 [place]. RIGHT KNEE REPAIR 2006 [facility] [place]. RIGHT KNEE REPAIR 2007, 2008 [place]. UMBILICAL HERNIA REPAIR 2009 [facility] [place]. CARDIAC CATHERIZATION 2000 [place] Hx Anesthesia Reactions: No - Immunization History Date of Tetanus Vaccine: UTD Date of Influenza Vaccine: UTD Infectious Disease History: No Infectious Disease History: Denies: Hx Clostridium Difficile, Hx Hepatitis, Hx Human Immunodeficiency Virus (HIV), Hx of Known/Suspected MRSA, Hx Shingles, History Other Infectious Disease, Traveled Outside the [place] in Last 30 Days - Family History Known Family History: Positive: Hypertension Family History: No FHx breast cancer - Social History Alcohol Use: Occasionally Alcohol Amount: 2 BEERS/MONTH Hx Substance Use: No Substance Use Type: Reports: None Hx Tobacco Use: No Smoking Status (MU): Never Smoked Tobacco Have You Smoked in the Last Year: No Review of Systems Positive: Fever - afebrile in ED, Chills, Other - generalized weakness, malaise , sweats Positive: Cough, Other - difficulty breathing All Other Systems Reviewed And Are Negative: Yes Physical Exam - Summary Physical Exam Summary: VITAL SIGNS: Reviewed. GENERAL: Patient is a well-developed and nourished female who is lying comfortable in the stretcher. Patient is not in any acute respiratory distress. HEAD AND FACE: No signs of trauma. No ecchymosis, hematomas or skull depressions. No sinus tenderness. EYES: PERRLA, EOMI x 2, No injected conjunctiva, no nystagmus. EARS: Hearing grossly intact. Ear canals and tympanic membranes are within normal limits. MOUTH: Oropharynx within normal limits. NECK: Supple, trachea is midline, no adenopathy, no JVD, no carotid bruit, no c- spine tenderness, neck with full ROM. CHEST: Symmetric, no tenderness at palpation LUNGS: Decreased breath sounds bilaterally. CVS: Regular rate and rhythm, S1 and S2 present, no murmurs or gallops appreciated. ABDOMEN: Soft, non-tender. No signs of distention. No rebound no guarding, and no masses palpated. Bowel sounds are normal. EXTREMITIES: FROM in all major joints, no edema, no cyanosis or clubbing. NEURO: Alert and oriented x 3. No acute neurological deficits. Speech is normal and follows commands. SKIN: Dry and warm Triage Information Reviewed: Yes Vital Signs On Initial Exam: Initial Vitals Temp Pulse Resp BP Pulse Ox 98.5 F 79 20 144/84 97 10/12/17 20:33 10/12/17 20:33 10/12/17 20:33 10/12/17 20:33 10/12/17 20:33 Vital Signs Reviewed: Yes Diagnostics - Vital Signs Vital Signs Temp Pulse Resp BP Pulse Ox 10/12/17 20:33 98.5 F 79 20 144/84 97 - Laboratory Result Diagrams: 10/12/17 22:30 10/12/17 22:30 Lab Statement: Any lab studies that have been ordered have been reviewed, and results considered in the medical decision making process. - Radiology CXR Xray Interpretation: No Acute Changes - No acute process. Pending official report. Radiology Interpretation Completed By: ED Physician Re-Evaluation - Re-Evaluation First Eval Re-Evaluation Time: 00:02 Comment: Results discussed. Patient will be discharged. Flu Symptom Course/Dx - Course Assessment/Plan: The patient is a 46 year old female complaining of a cough, generalized weakness, malaise, and chills for the last three weeks. In the ED course the patient was given Ventolin, DuoNeb, Toradol, and IV fluids. Bloodwork was obtained. CXR shows no acute process. The patient is diagnosed with URI. The patient is instructed to follow up with primary care. - Diagnoses Provider Diagnoses: URI (upper respiratory infection) Discharge - Discharge Plan Condition: Stable Disposition: HOME Patient Education Materials: Upper Respiratory Infection (ED) Referrals: Hollis Lugo MD [Primary Care Provider] - 3 Days Additional Instructions: Follow up with your primary care physician in three days. Return to the emergency department for any new or worsening symptoms. The documentation as recorded by the Adilene romo Thomas accurately reflects the service I personally performed and the decisions made by Liliana gaston Abdul, MD.
[2017-10-13] MEDS ORDERED: Ciprofloxacin 0.3% OPTH.SOL* 2.5 ML BTL BOTH EYES SCH (00:30)
[2017-10-13 01:55] VITALS: BP 139/78
--- NOTE | 2017-10-13 07:50 | RAD ---
INDICATION: Shortness of breath. COMPARISON: Comparison is made with a prior chest x-ray study from June 26, 2017. TECHNIQUE: A portable view of the chest was obtained. FINDINGS: Cardiac and mediastinal contours appear to be within normal limits. The lungs are clear. No pleural effusion is seen. IMPRESSION: NO EVIDENCE FOR ACUTE DISEASE.
== END 2017-10-13 02:10 | disposition home or self-care (01) ==
LOC: ED 20:32
DX: J06.9 Acute upper respiratory infection, unspecified (principal); I25.10 Atherosclerotic heart disease of native coronary artery without angina pectoris; F41.0 Panic disorder [episodic paroxysmal anxiety]; F32.9 Major depressive disorder, single episode, unspecified; Z88.5 Allergy status to narcotic agent; Z88.8 Allergy status to other drugs, medicaments and biological substances
CPT/HCPCS: 36415; 71045; 80053; 85025; 86140; 87502; 96374; 99284; A9270-GY; J2270

== ENCOUNTER 2018-11-17 08:00 | Emergency (ER) | payer OTHER ==
--- NOTE | 2018-11-17 09:02 | ED ---
Complex/Multi-Sys Presentation - HPI Summary HPI Summary: Patient is a 48-year-old female who presents emergency department for numerous complaints. Patient notes she has chronic back pain and today and woke up this morning with right low back pain and left leg pain. Patient states back pain is improving but left leg pain is persistent and feels "heavy." Denies any recent falls or injuries. Patient denies bowel or bladder incontinence or retention. She denies fever. Patient also notes she had some palpitations prior to arrival which have resolved. Patient denies chest pain or shortness of breath, abdominal pain, vomiting, diarrhea. Past medical history of chronic pain, V. tach, thrombus while , HTN, depression. Symptoms are moderate in severity. No current modifying factors. Pt. is rx percocet from chronic pain and states she took 10mg today without improvement of pain. - History Of Current Complaint Chief Complaint: EDExtremityLower Time Seen by Provider: 11/17/18 08:46 Hx Obtained From: Patient - Allergies/Home Medications Allergies/Adverse Reactions: Allergies Allergy/AdvReac Type Severity Reaction Status Date / Time Iodinated Contrast- Oral and Allergy Severe Itching Verified 11/17/18 08:08 IV Dye Iodine and Iodide Containing Allergy Severe Itching Verified 11/17/18 08:08 Produc ketorolac [From Toradol] Allergy Itching Verified 11/17/18 08:08 pregabalin [From Lyrica] Allergy Edema Verified 11/17/18 08:08 shellfish derived Allergy Anaphylatic Verified 11/17/18 08:08 Shock tramadol Allergy Itching Verified 11/17/18 08:08 PMH/Surg Hx/FS Hx/Imm Hx Previously Healthy: Yes Endocrine/Hematology History: Denies: Hx Anticoagulant Therapy, Hx Blood Disorders, Hx Diabetes Cardiovascular History: Reports: Hx Coronary Artery Disease - HEART CATH 2000 [facility], FOLLOWED BY DR LUGO, Other Cardiovascular Problems/Disorders - HX VTACH, CARDIAC CATH, BLOOD CLOTS DURING [facility] 1990 Denies: Hx Hypertension, Hx Pacemaker/ICD Respiratory History: Reports: Hx Asthma - INHALER GI History: Reports: Hx Gastroesophageal Reflux Disease - not active at this time, Other GI Disorders - HX OF STOMACH ULCER, UMBILICAL HERNIA History: Reports: Other Problems/Disorders - PARTIAL HYSTERECTOMY 2008 Denies: Hx Renal Disease Musculoskeletal History: Reports: Hx Arthritis - BACK, HANDS, HIPS, RIGHT KNEE, Hx Back Problems - thoracic and lumbar spine, Hx Bursitis, Other Musculoskeletal History - pt followed by Dr. Lugo and Dr. 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 PARTIAL [place]CTOMY 2008 [place]. [place] [facility] [place]. [place]PA[place] 2007, 2008 [place];. UMBILICAL [place]IA [place] 2009 [facility] [place]ONOSCOP[place] (YES POLYPS[place] [facility] [place];. TUBAL PREGANCY, PARTIAL TUBAL REMOVAL;. BREAST REDUCTION; Hx Anesthesia Reactions: No - Immunization History Date of Tetanus Vaccine: UTD Date of Influenza Vaccine: UTD Infectious Disease History: No Infectious Disease History: Denies: Hx Clostridium Difficile, Hx Hepatitis, Hx Human Immunodeficiency Virus (HIV), Hx of Known/Suspected MRSA, Hx Shingles, History Other Infectious Disease, Traveled Outside the [place] in Last 30 Days - Family History Known Family History: Positive: Hypertension Family History: No FHx breast cancer - Social History Occupation: Disabled Lives: With Family Alcohol Use: Occasionally Alcohol Amount: 2 BEERS/MONTH Hx Substance Use: No Substance Use Type: Reports: None Hx Tobacco Use: No Smoking Status (MU): Never Smoked Tobacco Have You Smoked in the Last Year: No Review of Systems Constitutional: Negative Negative: Fever, Chills Eyes: Negative ENT: Negative Positive: Palpitations. Negative: Chest Pain Respiratory: Negative Negative: Shortness Of Breath, Cough Gastrointestinal: Negative Negative: Abdominal Pain, Vomiting, Diarrhea, Nausea Genitourinary: Negative Negative: burning, dysuria, frequency, flank pain Positive: Other - Right low back pain and left leg pain Neurological: Negative Negative: Headache, Weakness, Paresthesia, Numbness All Other Systems Reviewed And Are Negative: Yes Physical Exam Triage Information Reviewed: Yes Vital Signs On Initial Exam: Initial Vitals Temp Pulse Resp BP Pulse Ox 97.9 F 86 17 144/91 99 11/17/18 08:03 11/17/18 08:03 11/17/18 08:03 11/17/18 08:03 11/17/18 08:03 Vital Signs Reviewed: Yes Appearance: Positive: Well-Appearing - Pt. sitting on bed in NAD. present. Skin: Positive: Warm, Dry Head/Face: Positive: Normal Head/Face Inspection Eyes: Positive: Normal, EOMI, BAO Neck: Positive: Supple Respiratory/Lung Sounds: Positive: Clear to Auscultation, Breath Sounds Present Cardiovascular: Positive: Normal, RRR Abdomen Description: Positive: Nontender, Soft Musculoskeletal: Positive: Other - No reproducible back pain. No CVA tenderness. Left leg with calf tenderness. I do not appreciate any edema but pt. feels it is swollen. Compartments are soft. Good pedal pulse. 5/5 strength in LEs. No wounds or erythema or ecchymosis. Neurological: Positive: Normal, CN Intact II-III Psychiatric: Positive: Affect/Mood Appropriate Diagnostics - Vital Signs Vital Signs Temp Pulse Resp BP Pulse Ox 11/17/18 08:03 97.9 F 86 17 144/91 99 - Laboratory Result Diagrams: 11/17/18 09:16 11/17/18 09:16 Lab Statement: Any lab studies that have been ordered have been reviewed, and results considered in the medical decision making process. Complex Multi-Symp Course/Dx Course Of Treatment: Pt. presenting with vague complaints of back pain, left leg pain. She is afebrile with stable VS. Pt. has a good pedal pulse and signs of ischemic limb on exam. 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 ECG, labs and venous duplex ordered. Pt. requesting pain medication for her back and leg pain. Pt. states she has a very high pain tolerance. IV morphine ordered. ECG done at 924 shows a sinus rhythm of 78bpm, left axis deviation, LBBB which appears to be new based on old ECG. Labs unremarkable including negative troponin. Pt. has not had any chest pain today and has not c/o palpitations, cp, sob, epigastric pain, n/v. Case discussed with oncall tow mate, Dr. Lovett, who reviewed ECG and pt.'s hx. She feels since pt. has no sxs of ACS that pt. can f.u outpt. with pcp and cardio referral. She notes she will send message along to pcp for f.u. U/S is negative for DVT per radiology. Results and ECG discussed with pt. She is agreeable with dc but states that morphine did not help her pain at all and does not think she can go home with the amount of pain she is in. Pt. given a dose of dilaudid and dc home. Advised to see pcp in 1-2 days for further workup of abnormal ECG. To return to ER for CP, sob or worsening sxs. - Diagnoses Provider Diagnoses: Chronic pain, Left bundle branch block Discharge - Sign-Out/Discharge Documenting (check all that apply): Patient Departure Patient Received Moderate/Deep Sedation with Procedure: No - Discharge Plan Condition: Improved Disposition: HOME Patient Education Materials: Musculoskeletal Pain (ED) Referrals: Norma Castelan MD [Primary Care Provider] - Additional Instructions: Follow up with your PCP this week as scheduled and for further evaluation of abnormal ECG Continue home medications as directed Return to ER if symptoms change or worsen - Billing Disposition and Condition Condition: IMPROVED Disposition: Home
[2018-11-17 09:24] LABS: ABS Basophils 0.1 10^3/ul (0-0.2); ABS Eosinophils 0.2 10^3/ul (0-0.6); ABS Lymphocytes 2.4 10^3/ul (1.0-4.8); ABS Monocytes 0.6 10^3/ul (0-0.8); ABS Neutrophils 4.5 10^3/ul (1.5-7.7); ABS Nucleated RBC 0 10^3/ul; Eosinophil % 2.8 %; Hematocrit 40 % (33-41); Hemoglobin 12.9 g/dL (12.0-16.0); Lymphocyte % 31.2 %; Mean Corpuscular HGB Conc 32 g/dL (31-36); Mean Corpuscular Hemoglobin 27 pg (27-31); Mean Corpuscular Volume 84 fL (80-97); Mean Platelet Volume 8.8 fL (7.4-10.4); Nucleated Red Blood Cells % 0.1; Platelet Count 283 10^3/uL (150-450); Red Blood Count 4.84 10^6 /uL (3.70-4.87); Red Cell Distribution Width 13 % (10.5-15); White Blood Count 7.7 10^3/uL (3.5-10.8)
[2018-11-17 09:44] LABS: Albumin 3.9 g/dL (3.2-5.2); Albumin/Globulin Ratio 1.3 (1-3); BUN/Creatinine Ratio 16.7 (8-20); EGFR African American 87.2 (>60); EGFR Non-African American 72.1 (>60); Magnesium 2.1 mg/dL (1.9-2.7); Total Bilirubin 0.1 mg/dL (0.2-1.0); Total Protein 6.9 g/dL (6.4-8.9); Troponin I 0.01 ng/mL (<0.04)
[2018-11-17] MEDS ORDERED: Morphine 4 MG/ML VIAL (1 ml) 4 MG/ML VIAL IV ONE (09:47)
[2018-11-17 10:16] LABS: Potassium 4.2 mmol/L (3.5-5.0); TSH (Thyroid Stimulating Horm) 1.93 mcIU/mL (0.34-5.60)
[2018-11-17] MEDS ORDERED: HYDROmorphone INJ1* 1 MG/ML SYRINGE IV SLOW PU ONE (11:01)
[2018-11-17 12:35] VITALS: BP 168/76
== END 2018-11-17 12:34 | disposition home or self-care (01) ==
LOC: ED 08:00
DX: G89.29 Other chronic pain (principal); I44.7 Left bundle-branch block, unspecified; I25.10 Atherosclerotic heart disease of native coronary artery without angina pectoris; J45.909 Unspecified asthma, uncomplicated; K21.9 Gastro-esophageal reflux disease without esophagitis; M46.90 Unspecified inflammatory spondylopathy, site unspecified; M13.842 Other specified arthritis, left hand; M13.841 Other specified arthritis, right hand; M13.861 Other specified arthritis, right knee; F41.9 Anxiety disorder, unspecified; F32.9 Major depressive disorder, single episode, unspecified; Z88.8 Allergy status to other drugs, medicaments and biological substances; Z88.5 Allergy status to narcotic agent; Z91.041 Radiographic dye allergy status; Z98.61 Coronary angioplasty status; Z86.718 Personal history of other venous thrombosis and embolism; Z79.51 Long term (current) use of inhaled steroids
CPT/HCPCS: 36415; 71045; 80053; 83735; 84443; 84484; 85025; 93005; 96374; 96375; 99282; J1170; J2270

== ENCOUNTER 2019-02-02 07:40 | Emergency (ER) | payer OTHER ==
--- NOTE | 2019-02-02 08:04 | ED ---
HPI Chest Pain - HPI Summary HPI Summary: The patient is a 48 y/o F presenting to [facility] with a chief complaint of gradual onset CP this morning after experiencing nausea throughout the night and SOB this morning prior to the CP starting. She reports that she was very nauseous last night and had difficulty sleeping. This morning, while she had already been awake, she began to have SOB, followed by left anterior CP that occasionally radiates from the mid-sternal chest, followed by pain in the right shoulder and upper humerus. She denies vomiting and diaphoresis. Currently, the sharp pain is rated 10/10 in severity. The chest pain worsens with deep breathing and is alleviated by nothing. She denies any trauma to the RUE. Hx of ventricular tachycardia, CAD, costochondritis, asthma, GERD. Surgical hx of cardiac cath without stents. FHx of HTN. Nonsmoker, occasional EtOH, no substance use. - History of Current Complaint Chief Complaint: EDChestPainROMI Time Seen by Provider: 02/02/19 07:53 Hx Obtained From: Patient Onset/Duration: Started Hours Ago - early this morning, Still Present Timing: Lasting Hours Initial Severity: Moderate Current Severity: Moderate Pain Intensity: 10 Pain Scale Used: 0-10 Numeric Chest Pain Location: Mid Sternal, Left Anterior Chest Pain Radiates: Yes Chest Pain Radiates To:: Arm - right upper arm Character: Sharp/Stabbing Aggravating Factor(s): Deep Breaths Alleviating Factor(s): Nothing Associated Signs and Symptoms: Positive: Chest Pain, Shortness of Breath, Nausea. Negative: Diaphoresis, Vomiting - Additional Pertinent History Primary Care Physician: [id number] - Allergy/Home Medications Allergies/Adverse Reactions: Allergies Allergy/AdvReac Type Severity Reaction Status Date / Time Iodinated Contrast- Oral and Allergy Severe Itching Verified 02/02/19 07:50 IV Dye Iodine and Iodide Containing Allergy Severe Itching Verified 02/02/19 07:50 Produc pregabalin [From Lyrica] Allergy Severe Edema Verified 02/02/19 07:50 shellfish derived Allergy Severe Anaphylatic Verified 02/02/19 07:50 Shock ketorolac [From Toradol] Allergy Itching Verified 02/02/19 07:50 tramadol Allergy Itching Verified 02/02/19 07:50 PMH/Surg Hx/FS Hx/Imm Hx Endocrine/Hematology History: Denies: Hx Anticoagulant Therapy, Hx Blood Disorders, Hx Diabetes Cardiovascular History: Reports: Hx Coronary Artery Disease - HEART CATH 2000 [place], FOLLOWED BY DR LUGO, Other Cardiovascular Problems/Disorders - HX VTACH, CARDIAC CATH, BLOOD CLOTS DURING [facility] 1990 Denies: Hx Hypercholesterolemia, Hx Hypertension, Hx Pacemaker/ICD Respiratory History: Reports: Hx Asthma - INHALER GI History: Reports: Hx Gastroesophageal Reflux Disease - not active at this time, Other GI Disorders - HX OF STOMACH ULCER, UMBILICAL HERNIA History: Reports: Other Problems/Disorders - PARTIAL HYSTERECTOMY 2008 Denies: Hx Renal Disease Musculoskeletal History: Reports: Hx Arthritis - BACK, HANDS, HIPS, RIGHT KNEE, Hx Back Problems - thoracic and lumbar spine, Hx Bursitis, Other Musculoskeletal History - followed by Dr. Lugo and Dr. 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 PARTIAL HYSTERECTOMY 2008 [place];. RIGHT KNEE REPAIR 2006 [facility] [place];. RIGHT KNEE REPAIR 2007, 2008 [place];. UMBILICAL HERNIA REPAIR 2009 [facility] [place];. COLONOSCOPIES (YES POLYPS) [facility] [place] AND [place];. TUBAL PREGANCY, PARTIAL TUBAL REMOVAL;. BREAST REDUCTION; Hx Anesthesia Reactions: No - Immunization History Date of Tetanus Vaccine: UTD Date of Influenza Vaccine: UTD Infectious Disease History: No Infectious Disease History: Denies: Hx Clostridium Difficile, Hx Hepatitis, Hx Human Immunodeficiency Virus (HIV), Hx of Known/Suspected MRSA, Hx Shingles, History Other Infectious Disease, Traveled Outside the [place] in Last 30 Days - Family History Known Family History: Positive: Hypertension Family History: No FHx breast cancer - Social History Alcohol Use: Occasionally Alcohol Amount: 2 BEERS/MONTH Hx Substance Use: No Substance Use Type: Reports: None Hx Tobacco Use: No Smoking Status (MU): Never Smoked Tobacco Do You Chew or Dip Tobacco: No Have You Chewed or Dipped Tobacco in the LAST YEAR: No Have You Smoked in the Last Year: No Review of Systems Negative: Skin Diaphoresis Positive: Chest Pain - mid-sternal radiating to left anterior Positive: Shortness Of Breath Positive: Nausea. Negative: Vomiting Positive: Myalgia - pain in the right shoulder All Other Systems Reviewed And Are Negative: Yes Physical Exam - Summary Physical Exam Summary: VITAL SIGNS: Reviewed. GENERAL: Patient is a well-developed and nourished female who is lying comfortable in the stretcher. Patient is not in any acute respiratory distress. HEAD AND FACE: No signs of trauma. No ecchymosis, hematomas or skull depressions. No sinus tenderness. EYES: PERRLA, EOMI x 2, No injected conjunctiva, no nystagmus. EARS: Hearing grossly intact. Ear canals and tympanic membranes are within normal limits. MOUTH: Oropharynx within normal limits. NECK: Supple, trachea is midline, no adenopathy, no JVD, no carotid bruit, no c- spine tenderness, neck with full ROM. CHEST: Symmetric, reproducible tenderness in the left chest and mid-sternal area. LUNGS: Clear to auscultation bilaterally. No wheezing or crackles. CVS: Regular rate and rhythm, S1 and S2 present, no murmurs or gallops appreciated. ABDOMEN: Soft, non-tender. No signs of distention. No rebound, no guarding, and no masses palpated. Bowel sounds are normal. EXTREMITIES: FROM in all major joints, no edema, no cyanosis or clubbing. NEURO: Alert and oriented x 3. No acute neurological deficits. Speech is normal and follows commands. SKIN: Dry and warm. Triage Information Reviewed: Yes Vital Signs On Initial Exam: Initial Vitals Temp Pulse Resp BP Pulse Ox 98.4 F 66 16 150/100 99 02/02/19 07:40 02/02/19 07:40 02/02/19 07:40 02/02/19 07:40 02/02/19 07:40 Vital Signs Reviewed: Yes Diagnostics - Vital Signs Vital Signs Temp Pulse Resp BP Pulse Ox 02/02/19 07:40 98.4 F 66 16 150/100 99 - Laboratory Result Diagrams: 02/02/19 08:02 02/02/19 08:02 Lab Statement: Any lab studies that have been ordered have been reviewed, and results considered in the medical decision making process. - Radiology CXR Radiology Interpretation Completed By: Radiologist Summary of Radiographic Findings: No active cardiopulmonary disease. ED physician has reviewed this radiology report. - EKG 0746 Cardiac Rate: NL - 71 BPM EKG Rhythm: Sinus Rhythm EKG Comparison: No Significant Change - Similar to EKG taken on 11/17/2018. Summary of EKG Findings: LBBB. No ST elevations. Re-Evaluation - Re-Evaluation First Eval Re-Evaluation Time: 09:55 Change: Worse Comment: Patient states that the Tylenol did not relieve the pain. I will order one Percocet for the patient. Second Eval Re-Evaluation Time: 11:30 Change: Improved Comment: The patient's shoulder pain has improved with the Percocet. We discussed results and discharge home. Chest Pain Course/Dx - Course Assessment/Plan: The patient is a 48 y/o F presenting to [facility] with a chief complaint of gradual onset CP this morning after experiencing nausea throughout the night and SOB this morning prior to the CP starting. She reports that she was very nauseous last night and had difficulty sleeping. This morning, while she had already been awake, she began to have SOB, followed by left anterior CP that occasionally radiates from the mid-sternal chest, followed by pain in the right shoulder and upper humerus. She denies vomiting and diaphoresis. Currently , the sharp pain is rated 10/10 in severity. The chest pain worsens with deep breathing and is alleviated by nothing. She denies any trauma to the RUE. Hx of ventricular tachycardia, CAD, costochondritis, asthma, GERD. Surgical hx of cardiac cath without stents. FHx of HTN. Nonsmoker, occasional EtOH, no substance use. In the ED course, the patient was placed in a contact center manager, IV access was obtained, and IV fluids were started. Patient was given Tylenol for the right shoulder pain. However, the patient reports that the pain is increasing; therefore, she was given 1 Percocet. Blood work without any significant abnormality except for WBCs of 12.1 and glucose of 108. The first troponin is 0.03 which is negative. Chest x-ray impression: No active cardiopulmonary disease. EKG shows no ST elevations. The second troponin is 0.00. The heart to score is equal to 1. There is not a significant suspicion for acute coronary syndrome. The patient is not tachycardic or hypoxic; therefore, there is no suspicion for a pulmonary embolism. I discussed all the findings and test results with the patient. Patient was instructed to return to the emergency room immediately if any of the symptoms return or worsen. Plan of care was discussed with the patient, and she understands and agrees. All questions were answered at patient satisfaction. There were no further complaints or concerns. Lung exam before discharge: CTA B/L. Good air exchange. No wheezing or crackles heard. CVS: S1 and S2 present. No murmurs appreciated. Patient is alert and oriented x 3. Patient is hemodynamically stable. Patient will be discharged home with follow up PCP in the next 2-3 days. - Chest Pain Differential Diagnosis/HQI/PQRI: Acute CA, ACS, Angina, CHF, Chest Wall, GI Disease - Diagnoses Provider Diagnoses: Atypical chest pain Discharge - Sign-Out/Discharge Documenting (check all that apply): Patient Departure - Patient will be discharged home. Patient Received Moderate/Deep Sedation with Procedure: No - Discharge Plan Condition: Stable Disposition: HOME Patient Education Materials: Chest Pain (DC) Referrals: Norma Castelan MD [Primary Care Provider] - 3 Days Additional Instructions: Follow up with your primary care provider in 2-3 days. RETURN TO THE EMERGENCY DEPARTMENT FOR ANY NEW OR WORSENING SYMPTOMS. - Billing Disposition and Condition Condition: STABLE Disposition: Home - Attestation Statements Document Initiated by Peggy: Yes Documenting Scribe: Chiara Quintana Provider For Whom Peggy is Documenting (Include Credential): Dr. Luis Mullins MD Scribe Attestation: Chiara Velazquez scribed for Dr. Luis Mullins MD on 02/02/19 at 1131. Scribe Documentation Reviewed: Yes Provider Attestation: The documentation as recorded by the Chiara romo accurately reflects the service I personally performed and the decisions made by me, Dr. Luis Mullins MD Status of [place]von Document: Ready
[2019-02-02 08:16] LABS: ABS Basophils 0.1 10^3/ul (0-0.2); ABS Eosinophils 0.3 10^3/ul (0-0.6); ABS Lymphocytes 3.2 10^3/ul (1.0-4.8); ABS Monocytes 0.9 10^3/ul (0-0.8); ABS Neutrophils 7.6 10^3/ul (1.5-7.7); Eosinophil % 2.4 %; Hematocrit 41 % (35-47); Hemoglobin 13.3 g/dL (12.0-16.0); Lymphocyte % 26.4 %; Mean Corpuscular HGB Conc 33 g/dL (31-36); Mean Corpuscular Hemoglobin 27 pg (27-31); Mean Corpuscular Volume 82 fL (80-97); Mean Platelet Volume 8.8 fL (7.4-10.4); Nucleated Red Blood Cells % 0.1; Platelet Count 317 10^3/uL (150-450); Red Blood Count 4.94 10^6 /uL (3.70-4.87); Red Cell Distribution Width 14 % (10-15); White Blood Count 12.1 10^3/uL (3.5-10.8)
[2019-02-02 08:20] LABS: INR 0.97 (0.82-1.09)
[2019-02-02 08:30] LABS: Troponin I 0.03 ng/mL (<0.04)
[2019-02-02 08:31] LABS: Albumin 4.2 g/dL (3.2-5.2); Albumin/Globulin Ratio 1.2 (1-3); BUN/Creatinine Ratio 24.4 (8-20); Calcium 9.7 mg/dL (8.6-10.3); EGFR African American 84.9 (>60); EGFR Non-African American 70.1 (>60); Globulin 3.4 g/dL (2-4); Magnesium 2.3 mg/dL (1.9-2.7); Potassium 3.9 mmol/L (3.5-5.0); Total Bilirubin 0.2 mg/dL (0.2-1.0); Total Protein 7.6 g/dL (6.4-8.9)
[2019-02-02] MEDS ORDERED: Acetaminophen TAB* 325 MG PO ONE (08:31)
[2019-02-02] MEDS ORDERED: oxyCODONE/Acetamin 5/325 MG* TAB PO ONE (09:33)
[2019-02-02 09:54] LABS: TSH (Thyroid Stimulating Horm) 3.97 mcIU/mL (0.34-5.60)
[2019-02-02 11:48] VITALS: BP 110/85
== END 2019-02-02 11:51 | disposition home or self-care (01) ==
LOC: ED 07:40
DX: R07.89 Other chest pain (principal); I25.10 Atherosclerotic heart disease of native coronary artery without angina pectoris; Z88.5 Allergy status to narcotic agent; Z88.8 Allergy status to other drugs, medicaments and biological substances; Z91.041 Radiographic dye allergy status
CPT/HCPCS: 36415; 71045; 80053; 83735; 84443; 84484; 85025; 85610; 93005; 99283; A9270-GY

== ENCOUNTER 2019-05-20 10:14 | Emergency (ER) | payer OTHER ==
--- OUTSIDE RECORDS SUMMARY | 2019-05-20 10:28 | XMS REPORT | Continuity of Care Document ---
:1970 External Reference #:[id number] Author Name Bryanna Wood M.D. (transmitted by agent of provider Oanh Escudero) Address [address], [place] [address] Care Team Providers Name Role Phone Pain Clinic - Pain Care Team Information Certified Dietary Manager [phone] Bryanna Wood MD - Internal Care Team Information Certified Dietary Manager Medicine [facility] - Primary Care Care Team Information Certified Dietary Manager [phone] Roxann Fay MD - Neurology Care Team Information Certified Dietary Manager [phone] Poncho Johnson DO - Interventional Care Team Information Certified Dietary Manager Pain Medicine Carito Gandhi MD - Care Team Information Certified Dietary Manager [phone] Obstetrics & Gynecology [facility] - Care Team Information Certified Dietary Manager [phone] Counseling [facility] Sleep Clinic - Sleep Disorder Care Team Information Certified Dietary Manager Diagnostic Problems Active Problems Provider Date Chronic pain syndrome Bryanna Wood M.D. Onset: 08/01/2009 Peptic ulcer without hemorrhage, Bryanna Wood M.D. Onset: 08/01/2009 without perforation AND without obstruction Nonsustained ventricular tachycardia Bryanna Wood M.D. Onset: 12/31/1999 Tietze's disease Hollis Lugo M.D.,FACP Onset: 05/13/2016 Endogenous depression Hollis Lugo M.D.,FACP Onset: 09/16/2016 Intervertebral disc prolapse Hollis Lugo M.D.,FACP Onset: 06/14/2018 Note: L4-5 LT Left bundle branch block Geovanna Lovett M.D. Onset: 12/17/2018 Social History Type Date Description Comments Sex Unknown Tobacco Use Start: Unknown Never Smoked Cigarettes ETOH Use Occasionally consumes beer Recreational Drug Use Former marijuana Tobacco Use Reviewed: 06/17/16 Patient has never smoked Smoking Status Reviewed: 03/31/19 Patient has never smoked Exercise Type/Frequency Does not exercise Allergies, Adverse Reactions, Alerts Active Allergies Reaction Severity Comments Date Shellfish Anaphylaxis Severe 04/09/2009 Toradol Urticaria 02/29/2016 Tramadol hives 05/13/2016 Lyrica Moderate swelling in lower extremities 10/16/2017 Medications Active Medications SIG Qnty Indications Ordering Date Provider Citalopram 1 po qd 30tabs F33.8 Bryanna 03/31/2019 Hydrobromide Clarence Wood 20mg Tablets Duloxetine HCL 1 by mouth every 7caps F33.8 Bryanna 03/31/2019 30mg day for one week Clarence Wood Caps DR Polo Oxycodone HCL 2 by mouth every 6 128tabs Bryanna 03/16/2019 5mg hours Clarence Wood Tablets Tizanidine HCL 1-2 tabs 2 x/day by 90tabs M51.16 Norma Castelan MD 2018 2mg mouth as needed for Tablets muscle spasms as needed Suprep Bowel Prep take according to 1units Rachel Desouza NP 11/15/2018 Kit your physician's instructions the 17.5-3.13-1.6GM/177 day before your ML Solution procedure. split the dose as directed. Magnesium Citrate please take one 296ml Rachel Desouza NP 11/15/2018 bottle at night 1.745GM/30ML time one day prior Solution to the start of "prep" day. Atenolol take 1/2 tablet by 15tabs Norma Castelan MD 11/09/2017 25mg mouth once daily Tablets Gabapentin 1 by mouth 3 times 150caps Bryanna 07/07/2017 100mg a day and 2 tabs Clarence Wood Capsules every night at bedtime Xanax 1/2-1 tablet 2 45tabs F41.9 Bryanna 05/13/2016 1mg Tablets times daily as Clarence Wood needed Xopenex 1 via nebulizer 4 50units 493.00 Bryanna 05/24/2012 1.25mg/3ML times daily as Clarence Wood Nebulizer needed Selenium Sulfide apply twice weekly 472units Hollis Desai 07/30/2010 if needed --jay Lugo M.D.,FACP 2.5% Lotion , wait 10 minutes then rinse Xopenex HFA 2 puffs every 4 1Mon J45.20 Hollis Desai 04/24/2009 hours as needed Clarence Lugo,FACP 45mcg/Act Aerosol Nebulizer use as directed 1units 493.00 Unknown History Medications Bupropion HCL 1 by mouth every 30tabs F33.2 Norma Castelan MD 10/20/2018 - 75mg day 12/16/2018 Tablets Medications Administered in Office Medication SIG Qnty Indications Ordering Provider Date Inj, Regadenoson, 0.1 MG Manny Elias, DO [facility] 03/22/2019 Injection Technetium TC 99M Manny Elias, DO [facility] 03/22/2019 Tetrofosmin, Per Unit Dose Up To 40 Millicuries Injection Technetium TC 99M Manny Elias, DO [facility] 03/22/2019 Tetrofosmin, Per Unit Dose Up To 40 Millicuries Injection Immunizations CPT Code Status Date Vaccine Reaction Lot # [id number] Given 06/08/2017 Influenza Virus Vaccine, [id number] Quadrivalent, Split, Preservative Free 31475 Given 05/13/2016 Influ Virus Vaccine, no reaction noted ... [id number] Quadrivalent, Split Virus, [place] [address] Given 06/04/2015 Influenza Virus Vaccine, [id number] Quadrivalent, Split, Preservative Free 61721 Given 05/26/2013 Flu Vaccine Split Virus [id number] Preservative Free For Indiv 3Yr Older 23953 Given 05/24/2012 Measles Mumps And Rubella [id number] MMR 38345 Given 05/29/2011 Influenza Virus 3Yrs & [id number] [place] 98510 Given 06/06/2010 Influenza Virus 3Yrs & Over Vital Signs Date Vital Result Comment 03/31/2019 2:06pm Height 65 inches 5'5" Weight 212.00 lb Heart Rate 82 /min BP Systolic 121 mmHg BP Diastolic 73 mmHg O2 % BldC Oximetry 98 % BMI (Body Mass Index) 35.3 kg/m2 12/17/2018 9:25am Height 65 inches 5'5" Weight 204.00 lb wih shoes Heart Rate 72 /min BP Systolic Sitting 128 mmHg BP Diastolic Sitting 84 mmHg BP Systolic Standing 126 mmHg BP Diastolic Standing 82 mmHg BMI (Body Mass Index) 33.9 kg/m2 Results Test Date Facility Test Result H/L Range Note Drug Abuse 02/23/2019 [facility] Urine Amphetamine Negative ng/ mL 1, 2 [address] [place] [address] [phone] Urine Barbiturates Negative ng/mL 3 Urine Benzodiazepines Presumptive Posi <SEE NOTE> Abnormal 4 ng/mL Urine Cocaine Negative ng/mL 5 Urine Phencyclidine Negative ng/mL Cutoff: 25 Urine Tetrahydrocannabinol Presumptive Posi <SEE NOTE> Abnormal Cutoff: 50 6 ng/mL Creatinine, Urine 152.5 mg/dL Specific [place] 1.013 pH 6.1 Oxidants Negative 7 Adulterants Comment Normal Codeine, Ur Not Detected ng/mL Cutoff: 25 8 Scwanfi-2-jyaj-glucuronide, Ur Not Detected ng/mL 9 Morphine, Ur Not Detected ng/mL Cutoff: 25 10 Yuweqodl-4-nfzb-glucuronide, U Not Detected ng/mL 11 6-monoacetylmorphine, Ur Not Detected ng/mL Cutoff: 25 12 Hydrocodone, Ur Not Detected ng/mL Cutoff: 25 13 Norhydrocodone, Ur Not Detected ng/mL Cutoff: 25 14 Dihydrocodeine, Ur Not Detected ng/mL Cutoff: 25 15 Hydromorphone, Ur Not Detected ng/mL Cutoff: 25 16 Hglovhdfanjcy7eeidykxoghmyfsd Not Detected ng/mL 17 Oxycodone, Ur Present ng/mL Abnormal Cutoff: 25 18 Noroxycodone, Ur Present ng/mL Abnormal Cutoff: 25 19 Oxymorphone, Ur Not Detected ng/mL Cutoff: 25 20 Loqjkjxnxti-4-fiax-glucuronide Present ng/mL Abnormal 21 Noroxymorphone, Ur Present ng/mL Abnormal Cutoff: 25 22 Fentanyl, Ur Not Detected ng/mL Cutoff: 2 23 Norfentanyl, Ur Not Detected ng/mL Cutoff: 2 24 Meperidine, Ur Not Detected ng/mL Cutoff: 25 25 Normeperidine, Ur Not Detected ng/mL Cutoff: 25 26 Naloxone, Ur Not Detected ng/mL Cutoff: 25 27 Datinuqg-4-argo-glucuronide, U Not Detected ng/mL 28 Methadone, Ur Not Detected ng/mL Cutoff: 25 29 Eddp, Ur Not Detected ng/mL Cutoff: 25 30 Propoxyphene, Ur Not Detected ng/mL Cutoff: 25 31 Norpropoxyphene, Ur Not Detected ng/mL Cutoff: 25 32 Tramadol, Ur Not Detected ng/mL Cutoff: 25 33 O-desmethyltramadol, Ur Not Detected ng/mL Cutoff: 25 34 Tapentadol, Ur Not Detected ng/mL Cutoff: 25 35 N-desmethyltapentadol, Ur Not Detected ng/mL Cutoff: 50 36 Gpihizxrmy-diir-nxraindhwqa, U Not Detected ng/mL 37 Buprenorphine, Ur Not Detected ng/mL Cutoff: 5 38 Norbuprenorphine, Ur Not Detected ng/mL Cutoff: 5 39 Norbuprenorphine glucuronide Not Detected ng/mL Cutoff: 20 40 Opioid Interpretation See Comment 41 Urine Benzodiazepines 02/23/2019 [facility] Urine Negative [address] Lorazepam ng/[place] [address] GC/MS [phone] Urine Nordiazepam GC/MS Negative ng/mL 43 Urine Oxazepam GC/MS Negative ng/mL 44 Urine Temazepam GC/MS Negative ng/mL 45 Ur Oh Ethyl Flurazepam GC/MS Negative ng/mL 46 Ur 7 [place] Clonazepam GC/MS Negative ng/mL 47 Ur 7 [place] Flunitrazepam GC/MS Negative ng/mL Cutoff: 50 Ur Alpha Oh Alprazolam GC/MS Negative ng/mL 48 Ur Alpha Oh Triazolam GC/MS Negative ng/mL 49 Ur Benzodiazepine Interp Negative. 50 THC Confirmation 02/23/2019 [facility] Urine Carboxy 353 ng/mL [address] THC Confirm [place], [place] [id number] [phone] Urine THC Interpretation Positive. 52 Laboratory test 02/02/2019 [facility] Troponin-I 0.00 <0.04 [address] (TnI) ng/[place] [address] [phone] CBC Auto Diff 02/02/2019 [facility] White Blood 12.1 High 3.5- 10.[address] Count 10^3/[place] [address] [phone] Red Blood Count 4.94 10^6/uL High 3.70-4.87 Hemoglobin 13.3 g/dL Normal 12.0-16.0 Hematocrit 41 % Normal 35-47 Mean Corpuscular Volume 82 fL Normal 80-97 Mean Corpuscular Hemoglobin 27 pg Normal 27-31 Mean Corpuscular HGB Conc 33 g/dL Normal 31-36 Red Cell Distribution Width 14 % Normal 10-15 Platelet Count 317 10^3/uL Normal 150-450 Mean Platelet Volume 8.8 fL Normal 7.4-10.4 Abs Neutrophils 7.6 10^3/uL Normal 1.5-7.7 Abs Lymphocytes 3.2 10^3/uL Normal 1.0-4.8 Abs Monocytes 0.9 10^3/uL High 0-0.8 Abs Eosinophils 0.3 10^3/uL Normal 0-0.6 Abs Basophils 0.1 10^3/uL Normal 0-0.2 Abs Nucleated RBC 0.0 10^3/uL Granulocyte % 62.9 % Lymphocyte % 26.4 % Monocyte % 7.5 % Eosinophil % 2.4 % Basophil % 0.8 % Nucleated Red Blood Cells % 0.1 Inr/Protime 02/02/2019 [facility] Inr 0.97 Normal 0.82-1.[address] [place] [address] [phone] Laboratory test 02/02/2019 [facility] Troponin-I 0.03 <0.[address] (TnI) ng/[place] [address] [phone] Comp Metabolic 02/02/2019 [facility] Sodium 137 Normal 135- [address] mmol/[place] [address] [phone] Potassium 3.9 mmol/L Normal 3.5-5.0 Chloride 102 mmol/L Normal 101-111 Co2 Carbon Dioxide 29 mmol/L Normal 22-32 Anion Gap 6 mmol/L Normal 2-11 Glucose 108 mg/dL High 70-100 Blood Urea Nitrogen 21 mg/dL Normal 6-24 Creatinine 0.86 mg/dL Normal 0.51-0.95 BUN/Creatinine Ratio 24.4 High 8-20 Calcium 9.7 mg/dL Normal 8.6-10.3 Total Protein 7.6 g/dL Normal 6.4-8.9 Albumin 4.2 g/dL Normal 3.2-5.2 Globulin 3.4 g/dL Normal 2-4 Albumin/Globulin Ratio 1.2 Normal 1-3 Total Bilirubin 0.20 mg/dL Normal 0.2-1.0 Alkaline Phosphatase 84 U/L Normal 34-104 Alt 23 U/L Normal 7-52 Ast 17 U/L Normal 13-39 Egfr Non- 70.1 >60 Egfr 84.9 >60 56 Laboratory test 02/02/2019 [facility] Magnesium 2.3 mg/dL Normal 1.9-2.[address] [place] [address] [phone] TSH (Thyroid Stim Horm) 3.97 mcIU/mL Normal 0.34-5.60 CBC Auto 11/17/2018 [facility] White Blood 7.7 10^3/uL Normal 3.5-10.[address] [place] [address] [phone] Red Blood Count 4.84 10^6/uL Normal 3.70-4.87 Hemoglobin 12.9 g/dL Normal 12.0-16.0 Hematocrit 40 % Normal 33-41 Mean Corpuscular Volume 84 fL Normal 80-97 Mean Corpuscular Hemoglobin 27 pg Normal 27-31 Mean Corpuscular HGB Conc 32 g/dL Normal 31-36 Red Cell Distribution Width 13 % Normal 10.5-15 Platelet Count 283 10^3/uL Normal 150-450 Mean Platelet Volume 8.8 fL Normal 7.4-10.4 Abs Neutrophils 4.5 10^3/uL Normal 1.5-7.7 Abs Lymphocytes 2.4 10^3/uL Normal 1.0-4.8 Abs Monocytes 0.6 10^3/uL Normal 0-0.8 Abs Eosinophils 0.2 10^3/uL Normal 0-0.6 Abs Basophils 0.1 10^3/uL Normal 0-0.2 Abs Nucleated RBC 0 10^3/uL Granulocyte % 57.6 % Lymphocyte % 31.2 % Monocyte % 7.6 % Eosinophil % 2.8 % Basophil % 0.8 % Nucleated Red Blood Cells % 0.1 Comp Metabolic Panel 11/17/2018 [facility] Sodium 134 mmol/L Low 135-145 [address] [place] [address] [phone] Chloride 102 mmol/L Normal 101-111 Co2 Carbon Dioxide 28 mmol/L Normal 22-32 Glucose 105 mg/dL High 70-100 Blood Urea Nitrogen 14 mg/dL Normal 6-24 Creatinine 0.84 mg/dL Normal 0.51-0.95 BUN/Creatinine Ratio 16.7 Normal 8-20 Calcium 9.0 mg/dL Normal 8.6-10.3 Total Protein 6.9 g/dL Normal 6.4-8.9 Albumin 3.9 g/dL Normal 3.2-5.2 Globulin 3.0 g/dL Normal 2-4 Albumin/Globulin Ratio 1.3 Normal 1-3 Total Bilirubin 0.10 mg/dL Low 0.2-1.0 Alkaline Phosphatase 79 U/L Normal 34-104 Alt 19 U/L Normal 7-52 Egfr Non- 72.1 >60 Egfr 87.2 >60 57 Potassium 4.2 mmol/L Normal 3.5-5.0 Anion Gap 4 mmol/L Normal 2-11 Ast 15 U/L Normal 13-39 Laboratory test 11/17/2018 [facility] Magnesium 2.1 mg/dL Normal 1.9-2.7 finding [address] [place] [address] [phone] Troponin-I (TnI) 0.01 ng/mL <0.04 58 TSH (Thyroid Stim Horm) 1.93 mcIU/mL Normal 0.34-5.60 1 [id number] 2 REFERENCE VALUE Cutoff: 500 3 REFERENCE VALUE Cutoff: 200 4 Presumptive Positive Drug confirmation to follow. Presumptive Positive means that the screening method is positive, but the test needs to be run by a confirmatory method before being finalized. REFERENCE VALUE Cutoff: 100 5 REFERENCE VALUE Cutoff: 150 6 Presumptive Positive Drug confirmation to follow. Presumptive Positive means that the screening method is positive, but the test needs to be run by a confirmatory method before being finalized. ADDITIONAL INFORMATION This report is intended for use in clinical monitoring or management of patients. It is not intended for use in employment-related testing. Test Performed by: [facility] [address] [place] [address] 7 REFERENCE VALUE Cutoff: 200 mg/L 8 Tylenol 3 9 Metabolite of codeine REFERENCE VALUE Cutoff: 100 10 Carmella Gonzalez, Contin; Also a minor metabolite (10%) of codeine and can be seen in low concentrations (<2,000 ng/mL) with poppy seed ingestion. 11 Metabolite of morphine REFERENCE VALUE Cutoff: 100 12 Metabolite of heroin 13 Lortab, [place], Vicodin; Also a very minor metabolite of codeine and impurity (<1%) of oxycodone. 14 Metabolite of hydrocodone 15 Metabolite of hydrocodone 16 Dilaudid, Exalgo; Also a metabolite of hydrocodone and a minor (<5%) metabolite of morphine. 17 Metabolite of hydromorphone REFERENCE VALUE Cutoff: 100 18 Endocet, Percocet, Oxycontin 19 Metabolite of oxycodone 20 Numorphan, Opana; Also a metabolite of oxycodone. 21 Metabolite of oxymorphone REFERENCE VALUE Cutoff: 100 22 Metabolite of oxymorphone 23 Actiq, Duragesic, [place] 24 Metabolite of fentanyl 25 Demerol 26 Metabolite of meperidine 27 Narcan 28 Metabolite of naloxone REFERENCE VALUE Cutoff: 100 29 Dolophine 30 Metabolite of methadone 31 Darvon, Darvocet 32 Metabolite of propoxyphene 33 Tradol, Ultram, Ultracet 34 Metabolite of tramadol 35 Nucynta 36 Metabolite of tapentadol 37 Metabolite of tapentadol REFERENCE VALUE Cutoff: 100 38 Buprenex, Suboxone 39 Metabolite of buprenorphine 40 Metabolite of buprenorphine 41 Test detected the presence of oxycodone and several metabolites (noroxycodone, noroxymorphone, and nodovzbtapy-9-abua-glucuronide). Suspect use of oxycodone and/or oxymorphone within the past three days. ADDITIONAL INFORMATION This test was developed and its performance characteristics determined by [facility] in a manner consistent with CLIA requirements. This test has not been cleared or approved by the U.S. Food and Drug Administration. 42 REFERENCE VALUE Cutoff: 100 43 REFERENCE VALUE Cutoff: 100 44 REFERENCE VALUE Cutoff: 100 45 REFERENCE VALUE Cutoff: 100 46 REFERENCE VALUE Cutoff: 100 47 REFERENCE VALUE Cutoff: 100 48 REFERENCE VALUE Cutoff: 100 49 REFERENCE VALUE Cutoff: 100 50 ADDITIONAL INFORMATION This report is intended for use in clinical monitoring and management of patients. It is not intended for use in employment-related testing. This test was developed and its performance characteristics determined by [facility] in a manner consistent with CLIA requirements. This test has not been cleared or approved by the U.S. Food and Drug Administration. Test Performed by: [facility] - [address] [address] 51 REFERENCE VALUE Cutoff: 3.0 52 ADDITIONAL INFORMATION This report is intended for use in clinical monitoring and management of patients. It is not intended for use in employment-related testing. This test was developed and its performance characteristics determined by [facility] in a manner consistent with CLIA requirements. This test has not been cleared or approved by the U.S. Food and Drug Administration. Test Performed by: [facility] - [address] [address] 53 Troponin-I testing on Plasma Separator Tubes (PST) has a known false positive rate of 0.20-0.40%. All positive troponins reflex immediately to secondary confirmatory testing. Using the TagMii DxI 800 Access Immunoassay systems, the 99th percentile upper reference limit was demonstrated to be < 0.03 ng/mL. 54 Standard intensity warfarin therapeutic range: 2.0-3.0 High intensity warfarin therapeutic range: 2.5-3.5 55 Troponin-I testing on Plasma Separator Tubes (PST) has a known false positive rate of 0.20-0.40%. All positive troponins reflex immediately to secondary confirmatory testing. Using the [employer] Power Magic DxI 800 Access Immunoassay systems, the 99th percentile upper reference limit was demonstrated to be < 0.03 ng/mL. 56 Because ethnic data is not always readily available, this report includes an eGFR for both -Americans and non- Americans. The National Kidney Disease Education Program (NKDEP) does not endorse the use of the MDRD equation for patients that are not between the ages of 18 and 70, are , have extremes of body size, muscle mass, or nutritional status, or are non- or non-. According to the National Kidney Foundation, irrespective of diagnosis, the stage of the disease is based on the level of kidney function: Stage Description GFR(mL/min/1.73 m(2)) 1 Kidney damage with normal or decreased GFR 90 2 Kidney damage with mild decrease in GFR 60-89 3 Moderate decrease in GFR 30-59 4 Severe decrease in GFR 15-29 5 Kidney failure <15 (or dialysis) 57 Because ethnic data is not always readily available, this report includes an eGFR for both -Americans and non- Americans. The National Kidney Disease Education Program (NKDEP) does not endorse the use of the MDRD equation for patients that are not between the ages of 18 and 70, are , have extremes of body size, muscle mass, or nutritional status, or are non- or non-. According to the National Kidney Foundation, irrespective of diagnosis, the stage of the disease is based on the level of kidney function: Stage Description GFR(mL/min/1.73 m(2)) 1 Kidney damage with normal or decreased GFR 90 2 Kidney damage with mild decrease in GFR 60-89 3 Moderate decrease in GFR 30-59 4 Severe decrease in GFR 15-29 5 Kidney failure <15 (or dialysis) 58 Troponin-I testing on Plasma Separator Tubes (PST) has a known false positive rate of 0.20-0.40%. All positive troponins reflex immediately to secondary confirmatory testing. Using the TagMii DxI 800 Access Immunoassay systems, the 99th percentile upper reference limit was demonstrated to be < 0.03 ng/mL. Procedures Date Code Description Status 03/22/2019 43550 Stress Test Completed 03/22/2019 12235 Myocardial Perfusion Imaging Tomographic (Spect) Completed Multiple Studies 02/17/2019 59013 ECHO Transthoracic, Real-Time 2D With Doppler And Color Completed Flow 02/17/2019 31262 ECHO Transthoracic, Real-Time 2D With Doppler And Color Completed Flow 12/17/2018 93185 EKG Tracing & Interpretation Completed 05/21/2016 [id number] Mammogram Completed 02/21/2015 [id number] Mammogram Completed 06/22/2013 [id number] Colonoscopy Completed 01/15/2011 [id number] Mammogram Completed 06/11/2010 [id number] Colonoscopy Completed Medical Devices Description No Information Available Encounters Type Date Location Provider Dx Diagnosis Office Visit 12/17/2018 [facility] Geovanna Lovett, I44.7 Left bundle- branch 9:40a Of [employer] AT [facility] M.D. block, unspecified I47.2 Ventricular tachycardia R00.2 Palpitations R07.9 Chest pain, unspecified K63.89 Other specified diseases of intestine Z82.49 Family hx of ischem heart dis and oth dis of the circ sys Office Visit 11/19/2018 10:40a [facility] Internal Norma Castelan, M51.16 Intervertebral disc Medicine - MD disorders w [facility] radiculopathy, lumbar region I44.7 Left bundle-branch block, unspecified Office Visit 11/02/2018 4:00p [facility] Gastroenterology K62.5 Hemorrhage of Desouza, LAST PUTTER AWAY anus and rectum Z86.010 Personal history of colonic polyps Z80.0 Family history of malignant neoplasm of digestive organs K64.9 Unspecified hemorrhoids K27.9 Peptic ulc, site unsp, unsp as ac or chr, w/o hemor or perf Office Visit 10/20/2018 2:40p [facility] Internal Norma Castelan MD G89.4 Chronic pain Medicine - Suite syndrome R M51.16 Intervertebral disc disorders w radiculopathy, lumbar region F33.2 Major depressv disorder, recurrent severe w/o psych features K62.5 Hemorrhage of anus and rectum Z86.010 Personal history of colonic polyps Assessments Date Code Description Provider 03/31/2019 G89.4 Chronic pain syndrome Bryanna Wood M.D. 03/31/2019 M54.42 Lumbago with sciatica, left side Bryanna Wood M.D. 03/31/2019 R06.83 Snoring Bryanna Wood M.D. 03/31/2019 M13.0 Polyarthritis, unspecified Bryanna Wood M.D. 03/31/2019 F33.8 Other recurrent depressive disorders Bryanna Wood M.D. 03/22/2019 R94.31 Abnormal electrocardiogram [ECG] [EKG] Manny Elias, DO [facility] 03/22/2019 R94.31 Abnormal electrocardiogram [ECG] [EKG] Geovanna Lovett M.D. 02/23/2019 G89.4 Chronic pain syndrome Nurse Visit A 02/17/2019 I44.7 Left bundle-branch block, unspecified Geovanna Lovett M.D. 02/17/2019 I44.7 Left bundle-branch block, unspecified Traveling ECHO 1 12/17/2018 I44.7 Left bundle-branch block, unspecified Geovanna Lovett M.D. 12/17/2018 I47.2 Ventricular tachycardia Geovanna Lovett M.D. 12/17/2018 R00.2 Palpitations Geovanna Lovett M.D. 12/17/2018 R07.9 Chest pain, unspecified Geovanna Lovett M.D. 12/17/2018 K63.89 Other specified diseases of intestine Geovanna Lovett M.D. 12/17/2018 Z82.49 Family history of ischemic heart disease Geovanna Lovett M.D. and other diseases 11/19/2018 M51.16 Intervertebral disc disorders with Norma Castelan MD radiculopathy, lumbar reg 11/19/2018 I44.7 Left bundle-branch block, unspecified Norma Castelan MD 11/02/2018 K62.5 Hemorrhage of anus and rectum Rachel Desouza NP 11/02/2018 Z86.010 Personal history of colonic polyps Rachel Desouza NP 11/02/2018 Z80.0 Family history of malignant neoplasm of Rachel Desouza NP digestive organs 11/02/2018 K64.9 Unspecified hemorrhoids Rachel Desouza NP 11/02/2018 K27.9 Peptic ulcer, site unspecified, Rachel Desouza NP unspecified as acute or repairer welding systems and equipment 10/20/2018 G89.4 Chronic pain syndrome Norma Castelan MD 10/20/2018 M51.16 Intervertebral disc disorders with Norma Castelan MD radiculopathy, lumbar reg 10/20/2018 F33.2 Major depressive disorder, recurrent Norma Castelan MD severe without psychoti 10/20/2018 K62.5 Hemorrhage of anus and rectum Norma Castelan MD 10/20/2018 Z86.010 Personal history of colonic polyps Norma Castelan MD Plan of Treatment Future Appointment(s):05/06/2019 4:00 pm - Bryanna Wood M.D. at [facility] Internal Medicine - [facility]/11/2018 - Bryanna Wood M.D.G89.4 Chronic pain syndromeComments:I am prescribing your oxycodone at the same dose until you see the pain specialist.I will not be prescribing oxycodone after thatFollow up:1 month EFT3F24.42 Lumbago with sciatica, left sideNew Therapy:Physical TherapyComments:For your appointment you need to take your MRI films on a disc.To get this, go to the imaging officeand request it. You need to do this in person Start physical therapy - water aydcrxaI80.83 SnoringReferral:[facility] Sleep Clinic, Sleep Disord,Diag/WpqwhxB62.0 Polyarthritis, vslqqzrlzvqF52.8 Other recurrent depressive disordersNew Medication:Citalopram Hydrobromide 20 mg - 1 po qdDuloxetine HCL 30 mg - 1 by mouth every day for one week Functional Status Description No Information Available Mental Status Description No Information Available Referrals Refer to Reason for Referral Status Appt Date [facility] Sent [address] [address] [phone] Amanda Mckay MD Pain management Sent 04/07/[address] [place] [phone] [facility] chronic back pain 2ry to OA and mild Sent single disc disease, has been on opiates for years, would benefit from other interventions 02/14 [address] [place] [address] [phone] Jamia Diaz MD Patient with chronic low back pain with sciatica, Sent recent MRI shows worsening of disc herniation as well as spinal arthritis. Please offer both medication management and interventional treatment thank you. Called referral office, pt no showed too many times and they will now not see her 03/18 [address] [address] [phone] Geovanna Lovett MD Patient found to have a left bundle branch block Sent during ED visit for low back pain. She is asymptomatic but has a hx of V. [address] [place] [address] [phone] Erwin Delgado MD pt with personal hx of colon polyps, due for Sent 2018 repeat colonoscopy. also reports 2 episodes of BRBPR last weekend, painless, w/o recurrence [address] [place] [address] [phone]
[2019-05-20] MEDS ORDERED: Morphine 4 MG/ML VIAL (1 ml) 4 MG/ML VIAL IV ONE ×3 (10:39→12:45)
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
[2019-05-20 11:08] LABS: ABS Basophils 0.1 10^3/ul (0-0.2); ABS Eosinophils 0.2 10^3/ul (0-0.6); ABS Lymphocytes 2.5 10^3/ul (1.0-4.8); ABS Monocytes 0.6 10^3/ul (0-0.8); ABS Neutrophils 3.8 10^3/ul (1.5-7.7); Eosinophil % 2.3 %; Hematocrit 43 % (35-47); Hemoglobin 13.7 g/dL (12.0-16.0); Mean Corpuscular HGB Conc 32 g/dL (31-36); Mean Corpuscular Hemoglobin 27 pg (27-31); Mean Corpuscular Volume 83 fL (80-97); Mean Platelet Volume 9.1 fL (7.4-10.4); Nucleated Red Blood Cells % 0.1; Platelet Count 283 10^3/uL (150-450); Red Blood Count 5.13 10^6 /uL (3.70-4.87); Red Cell Distribution Width 14 % (10-15)
[2019-05-20 11:51] LABS: Troponin I 0.01 ng/mL (<0.04)
[2019-05-20 12:22] LABS: ALT 15 U/L (7-52); Albumin/Globulin Ratio 1.3 (1-3); Alkaline Phosphatase 77 U/L (34-104); BUN/Creatinine Ratio 11.1 (8-20); Blood Urea Nitrogen 10 mg/dL (6-24); CO2 Carbon Dioxide 26 mmol/L (22-32); Chloride 103 mmol/L (101-111); EGFR African American 80.5 (>60); EGFR Non-African American 66.5 (>60); Globulin 3.2 g/dL (2-4); Glucose 93 mg/dL (70-100); Sodium 136 mmol/L (135-145); Total Protein 7.2 g/dL (6.4-8.9)
[2019-05-20 12:25] LABS: Anion Gap 7 mmol/L (2-11)
[2019-05-20] MEDS ORDERED: predniSONE TAB* 20 MG PO ONE (12:45)
[2019-05-20 13:20] VITALS: BP 138/70
== END 2019-05-20 13:35 | disposition home or self-care (01) ==
LOC: ED 10:14
DX: R07.89 Other chest pain (principal); I25.10 Atherosclerotic heart disease of native coronary artery without angina pectoris; K21.9 Gastro-esophageal reflux disease without esophagitis; F41.9 Anxiety disorder, unspecified; F32.9 Major depressive disorder, single episode, unspecified; Z90.711 Acquired absence of uterus with remaining cervical stump; Z88.5 Allergy status to narcotic agent; Z88.8 Allergy status to other drugs, medicaments and biological substances; Z91.041 Radiographic dye allergy status; Z79.899 Other long term (current) drug therapy
CPT/HCPCS: 36415; 80053; 84484; 85025; 85379; 93005; 96374; 96376; 99283; J2270; J7512

== ENCOUNTER 2019-10-06 18:45 | Emergency (ER) | payer OTHER ==
[2019-10-06] MEDS ORDERED: Famotidine IV* 10 MG/ML 2 ML (20 mg) ONE (18:48)
[2019-10-06] MEDS ORDERED: EPINEPHRINE 1 MG/ML 1 ML VIAL ONE (18:49)
[2019-10-06] MEDS ORDERED: diPHENhydraMINE IV* 50 MG/ML 1 ml VIAL (BENADRYL) ONE (18:49)
[2019-10-06] MEDS ORDERED: methylPREDNISolone 125 MG* 2 ML VIAL ONE (18:49)
[2019-10-06] MEDS ORDERED: Famotidine IV* 10 MG/ML 2 ML (20 mg) IV SLOW PU ONE (18:53)
[2019-10-06] MEDS ORDERED: methylPREDNISolone 125 MG* 2 ML VIAL IV ONE (18:53)
[2019-10-06] MEDS ORDERED: diPHENhydraMINE IV* 50 MG/ML 1 ml VIAL (BENADRYL) IV ONE (18:53)
[2019-10-06] MEDS ORDERED: NS 0.9% 1000 ML** 1,000 ML IV ONE (18:53)
[2019-10-06] MEDS ORDERED: EPINEPHRINE 1 MG/ML 1 ML VIAL IM ONE (18:53)
--- NOTE | 2019-10-06 18:57 | ED ---
Allergic Reaction/Systemic - HPI Summary HPI Summary: 48 year old F presenting to [facility] accompanied by her with a chief complaint of an allergic reaction including tongue swelling, nausea, facial swelling, and chest pain since 30 minutes ago after her microwaved shellfish. The patient rates the pain 5/10 in severity. Symptoms aggravated by nothing. Symptoms alleviated by nothing. Patient denies vomiting. She has an allergy to shellfish. Medication list reviewed. Allergy list reviewed. Home Medications Medication Instructions Recorded Confirmed Type Levalbuterol HFA INHALER* [Xopenex 2 puff INH Q6H PRN 03/23/13 05/20/19 History Hfa Inhaler*] Ketoconazole 2 % CREAM (NF) 1 applic TOPICAL BID 09/02/16 05/20/19 History [Nizoral 2% CREAM (NF)] Selenium Sulfide 2.5 % TOPICAL DAILY PRN 09/02/16 05/20/19 History ALPRAZolam [Xanax] 0.5 - 1 mg PO BID PRN 11/08/18 05/20/19 History Atenolol TAB* [Tenormin TAB* 25 MG] 12.5 mg PO QAM 11/08/18 05/20/19 History Levalbuterol HCl [Xopenex] 1.25 mg INH QID PRN 11/08/18 05/20/19 History Gabapentin 100 mg PO QAM 11/19/18 05/20/19 History Gabapentin [Neurontin] 200 mg PO BEDTIME 11/19/18 05/20/19 History tiZANidine TAB* [Zanaflex TAB*] 2 mg PO TID PRN 11/19/18 05/20/19 History Acetaminophen with Codeine 1 each PO Q8HR PRN #10 tablet MDD 05/20/19 Rx [Acetaminophen-Cod #3 Tablet] 3 tablets predniSONE 20 mg TAB [Deltasone 20 40 mg PO DAILY 4 Days #8 tab 05/20/19 Rx MG TAB*] - History of Current Complaint Chief Complaint: EDAllergicReaction Hx Obtained From: Patient Onset/Duration: Sudden Onset Timing: Constant Severity Currently: Moderate Pain Intensity: 5 Pain Scale Used: 0-10 Numeric Character: Swelling Aggravating Factor(s): Nothing Alleviating Factor(s): Nothing Associated Signs And Symptoms: Positive: Chest Pain, Nausea, Other: - Tongue swelling; facial swelling. Negative: Vomiting - Allergies/Home Medications Allergies/Adverse Reactions: Allergies Allergy/AdvReac Type Severity Reaction Status Date / Time Iodinated Contrast Media Allergy Severe Itching Verified 10/06/19 18:49 [Iodinated Contrast- Oral and IV Dye] Iodine and Iodide Containing Allergy Severe Itching Verified 10/06/19 18:49 Produc pregabalin [From Lyrica] Allergy Severe Edema Verified 10/06/19 18:49 shellfish derived Allergy Severe Anaphylatic Verified 10/06/19 18:49 Shock ketorolac [From Toradol] Allergy Itching Verified 10/06/19 18:49 tramadol Allergy Itching Verified 10/06/19 18:49 Home Medications: Home Medications Levalbuterol HFA INHALER* [Xopenex Hfa Inhaler*] 2 puff INH Q6H PRN 03/23/13 [ History Confirmed 05/20/19] Ketoconazole 2 % CREAM (NF) [Nizoral 2% CREAM (NF)] 1 applic TOPICAL BID [History Confirmed 05/20/19] Selenium Sulfide 2.5 % TOPICAL DAILY PRN 09/02/16 [History Confirmed 05/20/19] ALPRAZolam [Xanax] 0.5 - 1 mg PO BID PRN 11/08/18 [History Confirmed 05/20/19] Atenolol TAB* [Tenormin TAB* 25 MG] 12.5 mg PO QAM 11/08/18 [History Confirmed 05/20/19] Levalbuterol HCl [Xopenex] 1.25 mg INH QID PRN 11/08/18 [History Confirmed 05/20] Gabapentin 100 mg PO QAM 11/19/18 [History Confirmed 05/20/19] Gabapentin [Neurontin] 200 mg PO BEDTIME 11/19/18 [History Confirmed 05/20/19] tiZANidine TAB* [Zanaflex TAB*] 2 mg PO TID PRN 11/19/18 [History Confirmed ] Acetaminophen with Codeine [Acetaminophen-Cod #3 Tablet] 1 each PO Q8HR PRN #10 tablet MDD 3 tablets 05/20/19 [Rx] predniSONE 20 mg TAB [Deltasone 20 MG TAB*] 40 mg PO DAILY 4 Days #8 tab [Rx] EPINEPHrine [Epipen 2-Kevin] 0.3 mg IM ONCE PRN #1 inj 10/06/19 [Rx] Famotidine TAB* [Pepcid 20 MG TAB*] 20 mg PO BID 5 Days #10 tab 10/06/19 [Rx] predniSONE [Prednisone 20 MG TAB] 40 mg PO DAILY 5 Days #10 tablet 10/06/19 [Rx] PMH/Surg Hx/FS Hx/Imm Hx Endocrine/Hematology History: Denies: Hx Anticoagulant Therapy, Hx Blood Disorders, Hx Diabetes Cardiovascular History: Reports: Hx Coronary Artery Disease - HEART CATH 2000 [place], FOLLOWED BY DR LUGO, Other Cardiovascular Problems/Disorders - HX VTACH, CARDIAC CATH, BLOOD CLOTS DURING [facility] 1990 Denies: Hx Hypercholesterolemia, Hx Hypertension, Hx Pacemaker/ICD Respiratory History: Reports: Hx Asthma - INHALER GI History: Reports: Hx Gastroesophageal Reflux Disease - not active at this time, Other GI Disorders - HX OF STOMACH ULCER, UMBILICAL HERNIA History: Reports: Other Problems/Disorders - PARTIAL HYSTERECTOMY 2008 Denies: Hx Renal Disease Musculoskeletal History: Reports: Hx Arthritis - BACK, HANDS, HIPS, RIGHT KNEE, Hx Back Problems - thoracic and lumbar spine, Hx Bursitis, Other Musculoskeletal History - pt followed by Dr. Lugo and Dr. 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 PARTIAL HYSTERECTOMY 2008 [place];. RIGHT KNEE REPAIR 2006 [place];. RIGHT KNEE REPAIR 2007, 2008 [place];. UMBILICAL HERNIA REPAIR 2009 [place];. COLONOSCOPIES (YES POLYPS) [place] AND [place];. TUBAL PREGANCY, PARTIAL TUBAL REMOVAL;. BREAST REDUCTION; Hx Anesthesia Reactions: No - Immunization History Date of Tetanus Vaccine: UTD Date of Influenza Vaccine: UTD Infectious Disease History: No Infectious Disease History: Denies: Hx Clostridium Difficile, Hx Hepatitis, Hx Human Immunodeficiency Virus (HIV), Hx of Known/Suspected MRSA, Hx Shingles, History Other Infectious Disease, Traveled Outside the US in Last 30 Days - Family History Known Family History: Positive: Hypertension Family History: No FHx breast cancer - Social History Alcohol Use: Occasionally Alcohol Amount: 2 BEERS/MONTH Hx Substance Use: Yes Substance Use Type: Reports: Marijuana Hx Tobacco Use: No Smoking Status (MU): Never Smoked Tobacco Have You Smoked in the Last Year: No Review of Systems Positive: Other - Tongue swelling; facial swelling Positive: Chest Pain Positive: Nausea. Negative: Vomiting All Other Systems Reviewed And Are Negative: Yes Physical Exam - Summary Physical Exam Summary: Constitutional: Well-developed, Well-nourished, Alert. In mild distress. Skin: Warm, Dry; no obvious hives but some excoriations to the abdomen. HENT: Normocephalic; Atraumatic Eyes: Conjunctiva normal Neck: Musculoskeletal ROM normal neck. (-) JVD, (-) Stridor, (-) Tracheal deviation Cardio: Rhythm regular, rate normal, Heart sounds normal; Intact distal pulses; Radial pulses are 2+ and symmetric. (-) Murmur Pulmonary/Chest wall: Effort normal. (-) Respiratory distress, (-) Wheezes, (-) Rales, oxygen saturation 100%, no stridor. Abd: Soft, (-) tenderness, (-) Distension, (-) Guarding, (-) Rebound Musculoskeletal: (-) Edema Lymph: (-) Cervical adenopathy Neuro: Alert, Oriented x3 Psych: Mood and affect Normal Triage Information Reviewed: Yes Vital Signs On Initial Exam: Initial Vitals Temp Pulse Resp BP Pulse Ox 98.1 F 85 22 000/00 96 10/06/19 18:45 10/06/19 18:45 10/06/19 18:45 10/06/19 18:45 10/06/19 18:45 Vital Signs Reviewed: Yes Procedures - Sedation Patient Received Moderate/Deep Sedation with Procedure: No Diagnostics - Vital Signs Vital Signs Temp Pulse Resp BP Pulse Ox 10/06/19 18:45 98.1 F 85 22 000/00 96 - Laboratory Lab Statement: Any lab studies that have been ordered have been reviewed, and results considered in the medical decision making process. - EKG 19:05 Cardiac Rate: NL - 69 BPM EKG Rhythm: Sinus Rhythm Summary of EKG Findings: Left bundle branch block; unchanged from prior EKG. ED physician has reviewed and interpretted this EKG. 18:58 Cardiac Rate: NL - 69 BPM EKG Rhythm: Sinus Rhythm Summary of EKG Findings: Left bundle branch block; unchanged from prior EKG. ED physician has reviewed and interpretted this EKG. Re-Evaluation - Re-Evaluation First Eval Re-Evaluation Time: 20:54 Change: Worse - Worsening itchiness per nurse. Will order more Benadryl. Second Eval Re-Evaluation Time: 21:48 Change: Improved - Patient agrees to d/c. Will give more Benadryl, acetaminophen , Zofran before she leaves. Allergic Reaction Course/Dx - Course Course Of Treatment: Patient was brought back to the resuscitation room emergently. Patient was exposed to shellfish which she has a allergy to. Patient felt her chest and throat tightening up and had a skin reaction so patient met the criteria for anaphylaxis. Patient was treated with a shot of IM epinephrine, Solu-Medrol, IV fluids, Pepcid, Benadryl. Patient became nauseous so she was given Zofran. Patient had EKG which showed no change from prior. Patient signed out to Dr. Brito at 19:00 on 10/06/2019 pending clinical improvement. - Diagnoses Provider Diagnoses: Anaphylaxis, Allergic reaction Discharge ED - Sign-Out/Discharge Documenting (check all that apply): Sign-Out Patient Signing out patient TO: Karl Brito - Pending clinical improvement and disposition. - Discharge Plan Condition: Improved Disposition: HOME Prescriptions: EPINEPHrine [Epipen 2-Kevin] 0.3 mg IM ONCE PRN #1 inj PRN Reason: Allergy Symptoms Famotidine TAB* [Pepcid 20 MG TAB*] 20 mg PO BID 5 Days #10 tab predniSONE [Prednisone 20 MG TAB] 40 mg PO DAILY 5 Days #10 tablet Patient Education Materials: Food Allergy (ED), Anaphylaxis (ED) Referrals: Aron Cruz MD [Primary Care Provider] - Additional Instructions: Make sure to have benadryl and epipen on hand at home to use as needed if you have another reaction. - Billing Disposition and Condition Condition: IMPROVED Disposition: Home - Attestation Statements Document Initiated by Scribe: Yes Documenting Scribe: Shireen Arceo Provider For Whom Peggy is Documenting (Include Credential): Partha Hernandez MD Scribe Attestation: I, Shireen Arceo, scribed for Partha Hernandez MD on 10/08/19 at 0719. Scribe Documentation Reviewed: Yes Provider Attestation: The documentation as recorded by the Shireen romo accurately reflects the service I personally performed and the decisions made by me, Partha Hernandez MD Status of Scribe Document: Viewed
[2019-10-06] MEDS ORDERED: Ondansetron INJ* 2 MG/ML VIAL IV ONE (19:03)
--- NOTE | 2019-10-06 19:09 | ED ---
Progress - Progress Note Progress Note: 48 y/o F signed out from Dr. Partha Hernandez upon shift change 10/06/2019 1900 pending clinical improvement and disposition. Re-Evaluation - Re-Evaluation First Eval Re-Evaluation Time: 20:54 Change: Worse - Worsening itchiness per nurse. Will order more Benadryl. Second Eval Re-Evaluation Time: 21:48 Change: Improved - Patient agrees to d/c. Will give more Benadryl, acetaminophen , Zofran before she leaves. Course/Dx - Course Course Of Treatment: The patient will be discharged home with prescription for epinephrine, Pepcid, prednisone, and follow up from her primary care provider. She was instructed to return to Emergency Department for new or worsening symptoms. She understands and is agreeable to this plan. - Diagnoses Provider Diagnoses: Anaphylaxis, Allergic reaction Discharge ED - Sign-Out/Discharge Documenting (check all that apply): Patient Departure, Receiving Sign-Out Receiving patient FROM: Partha Hernandez - Discharge Plan Condition: Improved Disposition: HOME Prescriptions: EPINEPHrine [Epipen 2-Kevin] 0.3 mg IM ONCE PRN #1 inj PRN Reason: Allergy Symptoms Famotidine TAB* [Pepcid 20 MG TAB*] 20 mg PO BID 5 Days #10 tab predniSONE [Prednisone 20 MG TAB] 40 mg PO DAILY 5 Days #10 tablet Patient Education Materials: Food Allergy (ED), Anaphylaxis (ED) Referrals: Aron Cruz MD [Primary Care Provider] - Additional Instructions: Make sure to have benadryl and epipen on hand at home to use as needed if you have another reaction. - Billing Disposition and Condition Condition: IMPROVED Disposition: Home - Attestation Statements Document Initiated by Peggy: Yes Documenting Scribe: Hillary Sahu Provider For Whom Peggy is Documenting (Include Credential): Karl Brito MD Scribe Attestation: Hillary Velazquez, martaibed for Karl Brito MD on 10/11/19 at 0558. Scribe Documentation Reviewed: Yes Provider Attestation: The documentation as recorded by the Hillary romo accurately reflects the service I personally performed and the decisions made by me, Karl Brito MD Status of Scribe Document: Viewed
[2019-10-06] MEDS ORDERED: ALPRAZolam TAB* 0.5 MG PO ONE (19:22)
--- OUTSIDE RECORDS SUMMARY | 2019-10-06 19:28 | XMS REPORT | Continuity of Care Document ---
:1970 External Reference #:[id number] Author Name Tez King MD Address [address] [place] [address] Care Team Providers Name Role Phone Tez King MD - Family Medicine Care Team Information Radiological Health Specialist [facility] Care Team Information Radiological Health Specialist [phone] Willie Mcqueen MD - Gastroenterology Care Team Information Radiological Health Specialist Problems Description No Information Available Social History Type Date Description Comments Sex Unknown Tobacco Use Start: Unknown Never Smoked Cigarettes Smoking Status Reviewed: 08/16/19 Never Smoked Cigarettes ETOH Use Denies alcohol use Tobacco Use Start: Unknown smokes marijuana Recreational Drug Use Marijuana Allergies, Adverse Reactions, Alerts Active Allergies Reaction Severity Comments Date Lyrica leg edema 08/16/2019 Tramadol Hives 08/16/2019 Shellfish-Derived Products anaphylaxis Severe 08/16/2019 Medications Active Medications SIG Qnty Indications Ordering Date Provider Hydroxyzine HCL 1 tab by mouth 30tabs F41.9 Tez King, 08/16/2019 25mg every 8 hours as MD Tablets needed for anxiety Diclofenac Sodium 1 tab three times 60tabs G89.4 Tez King, 2019 50mg a day (every [address] hours) if needed for pain Gabapentin 1 tab by mouth 30caps G89.4 Tez King, 08/16/2019 300mg every 8 hours for MD Capsules pain Atenolol 1/2tab by mouth Unknown 25mg Tablets every day Citalopram 2 tab by mouth 60tabs Tez King, Hydrobromide every day MD 20mg Tablets Xanax 1 tab three times Unknown 1mg Tablets daily as needed Xopenex HFA 1-2 puffs every 30gm Tez King, 45mcg/Act 4-6 hours as MD Aerosol needed Tizanidine HCL TK 1 To 2 TS PO Unknown 2mg bid PRF MSP Tablets Xopenex 1 tab via Unknown 0.63mg/3ML nebulizer every Nebulizer 6-8 hours as needed Oxycodone HCL take 1 tablet by Unknown 10mg mouth every 6 Tablets hours for pain maximum daily dose of 4 Hair Skin & Nails 1tab once a day Unknown Advanced Formula Tablets History Medications Gabapentin 1 tab by mouth 30caps G89.4 Tez King, 08/16/2019 - 300mg every 8 hours 08/16/2019 Capsules for pain Immunizations CPT Code Status Date Vaccine Lot # [id number] Given 08/16/2019 Influenza Virus Vaccine, Quadrivalent, 36 Mos+, [id number] .[id number] Vital Signs Date Vital Result Comment 08/16/2019 2:40pm BP Systolic 128 mmHg BP Diastolic 72 mmHg Body Temperature 97.9 F Heart Rate 56 /min Respiratory Rate 18 /min Height 65 inches 5'5" Weight 191.00 lb BMI (Body Mass Index) 31.8 kg/m2 BSA (Body Surface Area) 1.94 m2 [place] body weight in kilograms 57 kg O2 % BldC Oximetry 99 % Results Description No Information Available Procedures Description No Information Available Medical Devices Description No Information Available Encounters Type Date Location Provider Dx Diagnosis Office Visit 08/16/2019 Primary Care Tez King G89.4 Chronic pain 2:30p Office syndrome F32.1 Major depressive disorder, single episode, moderate F41.9 Anxiety disorder, unspecified J45.909 Unspecified asthma, uncomplicated Z12.11 Encounter for screening for malignant neoplasm of colon Assessments Date Code Description Provider 08/16/2019 G89.4 Chronic pain syndrome Tez King MD 08/16/2019 F32.1 Moderate depression Tez King MD 08/16/2019 F41.9 Anxiety Tez King MD 08/16/2019 J45.909 Asthma without status asthmaticus Tez King MD 08/16/2019 Z12.11 Encounter for screening for malignant neoplasm Tez King MD of colon Plan of Treatment Future Appointment(s):09/16/2019 2:30 pm - Tez King MD at [facility]/16/2019 - Tez King MDG89.4 Chronic pain syndromeNew Medication: Diclofenac Sodium 50 mg - 1 tab three times a day (every 8 hours) if needed for painGabapentin 300 mg - 1 tab by mouth every 8 hours for painGabapentin 300 mg - 1 tab by mouth every 8 hours for painComments:Discussed with patient that I would not be prescribing her any opioid medication. I did pull up herdrug utilization report from the [facility] website.From review of the site to see that she was getting Xanax and oxycodone from August 2018 up until April 2019.Patient reports that she hasbeen off Xanax now for about 1 week.She reports that she still has about 10 tabs of oxycodone at home which she has been rationing since she knew she was not getting anymore refills from her previous provider.I discussed with the patient that I do not prescribe chronic opioid medication nor do I prescribe benzodiazepines on a regular basis. In my opinion, she does not appear very uncomfortable or logan in a lot of pain. I discussed with her that it would be in her best interest that she come off all of her opioid and benzodiazepine medications as she likely has developed dependence on them which is why she continues to feel the need for them. Recommended that she further ration her oxycodone at home taper her dose slowly until she is on nothing altogether.She strongly wants to see spine and wellness for chronic pain. I will place a referral.For any pains that she may have currently, I will prescribe her some diclofenac. Advised her to take this with food. She denies any history of acute GIbleeds or kidney disease. Some gabapentin is refilled as well until he get a chance to review her medical records.Encouraged physical activity. Patient states that she has worked with physical therapy before. Encouraged home exercises.Referral:[facility],F32.1 Moderate depressionComments:I encouraged patient to try to start working again.Encouraged physical exercise at or at the gym. She states that she has a lot of exercise machines at home. Encouraged at least 45 minutes to 1 hour every day.She denies any thoughts of self-harm or harming anyone else.I will increase her citalopram dose from 20 mg up to 40 mg. She states that she has a full bottle at home. Told her to take 2 pills of the 20 mg tablets daily.F41.9 AnxietyNew Medication:Hydroxyzine HCL 25 mg - 1 tab by mouth every 8 hours as needed for anxietyComments:Citalopram dose was increased to 40 mg daily.Notified patient that I do not prescribe Xanax.I will give her some hydroxyzine to use when necessary she does have anxiety and anxiety attacks. Encouragedher to meet with psychology for therapy and counseling as this can also help with her chronic pain.Patient states she is unemployed she does not have financial means to do so.Encouraged patient to try to get a job and work through her pain.J45.909 Asthma without status asthmaticusComments: Xopenex inhaler refilled.Symptoms well controlled.Z12.11 Encounter for screening for malignant neoplasm of colonComments:I do not have patient's medical records yet to review her GI history.Place her referral to GI for colon cancer screening.Referral:Willie Mcqueen MD, GastroenterologyAllComments:I'll see patient back here in clinic in 1 month.Should have medical records by then and I will have reviewed them.She may be due for cervical cancer screening soon as well as breast cancer screening. We'll address this at her next visit. Functional Status Functional Condition Comment Date Status Independent with all ADL's Active Mental Status Description No Information Available Referrals Refer to Dr Jefferson for Referral Status Appt Date [facility] chronic pain Created [address] [place] [address] [phone] Willie Mcqueen MD colonoscopy Created [address], [address] [place] [address] [phone]
[2019-10-06] MEDS ORDERED: diPHENhydraMINE IV* 50 MG/ML 1 ml VIAL (BENADRYL) SLOW PUSH ONE (20:54)
[2019-10-06] MEDS ORDERED: Acetaminophen TAB* 325 MG PO ONE (21:59)
[2019-10-06] MEDS ORDERED: diPHENhydraMINE PO* 50 MG PO ONE (21:59)
[2019-10-06] MEDS ORDERED: Ondansetron ODT TAB* 4 MG SL ONE (22:00)
[2019-10-06 22:21] VITALS: BP 152/94
== END 2019-10-06 22:18 | disposition home or self-care (01) ==
LOC: ED 18:45
DX: T78.02XA Anaphylactic reaction due to shellfish (crustaceans), initial encounter (principal); I44.7 Left bundle-branch block, unspecified; Z91.013 Allergy to seafood; Z88.5 Allergy status to narcotic agent; Z88.3 Allergy status to other anti-infective agents; Z91.041 Radiographic dye allergy status
CPT/HCPCS: 93005; 96361; 96372; 96374; 96375; 96376; 99283; A9270-GY; J1200; J2405; J2930

== ENCOUNTER 2021-12-14 13:30 | Inpatient (IN) ==
[2021-12-14] MEDS ORDERED: LORazepam 2 mg VIAL 1 ml IV PUSH ONE ×2 (13:40→16:52)
[2021-12-14] MEDS ORDERED: Lorazepam PYXIS KEY PRN ×2 (13:40→16:52)
[2021-12-14 14:05] LABS: ABS Eosinophils 0.4 10^3/ul (0-0.6); ABS Lymphocytes 2.2 10^3/ul (1.0-4.8); ABS Monocytes 0.7 10^3/ul (0-0.8); ABS Neutrophils 4.8 10^3/ul (1.5-7.7); Eosinophil % 4.5 %; Hematocrit 39 % (35-47); Hemoglobin 12.5 g/dL (12.0-16.0); Lymphocyte % 27.2 %; Mean Corpuscular HGB Conc 32 g/dL (31-36); Mean Corpuscular Hemoglobin 25 pg (27-31); Mean Corpuscular Volume 80 fL (80-97); Mean Platelet Volume 8.2 fL (7.4-10.4); Platelet Count 320 10^3/uL (150-450); Red Blood Count 4.93 10^6 /uL (3.70-4.87); Red Cell Distribution Width 13 % (10-15); White Blood Count 8.1 10^3/uL (3.5-10.8)
[2021-12-14 14:57] LABS: Albumin 4.1 g/dL (3.2-5.2); Albumin/Globulin Ratio 1.3 (1-3); Calcium 9.5 mg/dL (8.6-10.3); Globulin 3.1 g/dL (2-4); Potassium 4.1 mmol/L (3.5-5.0); Total Bilirubin 0.2 mg/dL (0.2-1.0); Total Protein 7.2 g/dL (6.4-8.9)
[2021-12-14] MEDS ORDERED: oxyCODONE/Acetamin 5/325 mg TAB PO ONE (15:07)
[2021-12-14 15:59] LABS: High Sensitivity Troponin 1 Hr 7 pg/mL (<15)
[2021-12-14 18:50] LABS: Urine Benzodiazepine Screen None Detected (None Detect); Urine Cannabinoids Screen None Detected (None Detect); Urine Opiates Screen None Detected (None Detect)
[2021-12-14] MEDS ORDERED: Al Hydrox/Mg Hydrox/Simet LIQ 30 ML UDC PO PRN (21:34)
[2021-12-15] MEDS: Vitamin THERAPEUTIC TAB PO SCH (10:25)
[2021-12-16] MEDS: Vitamin THERAPEUTIC TAB PO SCH (07:13)
[2021-12-16 07:50] LABS: HDL Cholesterol 65.8 mg/dL
[2021-12-16] MEDS: oxyCODONE/Acetamin 5/325 mg TAB PO PRN (15:24)
[2021-12-16] MEDS ORDERED: oxyCODONE/Acetamin 10/325(NF) TAB PO SCH (21:00)
[2021-12-17] MEDS: oxyCODONE/Acetamin 5/325 mg TAB PO PRN ×3 (00:02→16:30)
[2021-12-17] MEDS: Vitamin THERAPEUTIC TAB PO SCH (07:54)
[2021-12-18] MEDS: oxyCODONE/Acetamin 5/325 mg TAB PO PRN ×3 (00:58→17:35)
[2021-12-18] MEDS: Vitamin THERAPEUTIC TAB PO SCH (08:51)
[2021-12-18] MEDS: Levalbuterol HFA INHALER MDI INH PRN (20:08)
[2021-12-19] MEDS: oxyCODONE/Acetamin 5/325 mg TAB PO PRN ×3 (01:56→18:28)
[2021-12-19] MEDS: Levalbuterol HFA INHALER MDI INH PRN ×2 (08:39→17:58)
[2021-12-19] MEDS: Vitamin THERAPEUTIC TAB PO SCH (08:40)
[2021-12-20] MEDS: Levalbuterol HFA INHALER MDI INH PRN ×2 (00:14→13:22)
[2021-12-20] MEDS: oxyCODONE/Acetamin 5/325 mg TAB PO PRN ×2 (04:18→12:27)
[2021-12-20 08:13] VITALS: BP 117/67
[2021-12-20] MEDS: Vitamin THERAPEUTIC TAB PO SCH (08:33)
== END 2021-12-20 16:30 | disposition home or self-care (01) | DRG 751 ==
LOC: ED 13:30 → EDHOLD 19:15 → BSU 21:10
PROVIDERS: ADMIT Psychiatry & Neurology Psychiatry; ATTEND Psychiatry & Neurology Psychiatry

== ENCOUNTER 2024-05-08 08:12 | Inpatient (IN) ==
[2024-05-08] MEDS: Lactated Ringers 1000 ml BAG 1,000 ML IV ONE (09:02)
[2024-05-08] MEDS: Ondansetron 4 mg VIAL 2 MG/ML 2 ml VIAL IV ONE (09:02)
[2024-05-08 09:20] LABS: ABS Basophils 0.1 10^3/uL (0.0-0.1); ABS Eosinophils 0.1 10^3/uL (0.0-0.5); ABS Lymphocytes 1.4 10^3/uL (1.0-4.8); ABS Monocytes 0.4 10^3/uL (0.0-0.9); ABS Neutrophils 5.5 10^3/uL (1.5-7.6); Hematocrit 43.2 % (35-45); Hemoglobin 14.3 g/dL (11.5-14.3); Lymphocyte % 19.2 %; Mean Corpuscular Hgb Conc 33.1 g/dL (31-36); Mean Corpuscular Volume 84.5 fL (80-97); Mean Platelet Volume 9.8 fL (7.5-11.2); Nucleated Red Blood Cells % 0.1 %/100WBC (0.0-0.8); Platelet Count 249 10^3/uL (150-450); Red Blood Count 5.12 10^6/uL (3.63-4.92); Red Cell Distribution Width 13.7 % (12-17); White Blood Count 7.5 10^3/uL (3.8-11.8)
[2024-05-08 09:47] LABS: Albumin 4.2 g/dL (3.2-5.2); Albumin/Globulin Ratio 1.4 (1-3); C Reactive Protein 30.53 mg/L (<8.01); Calcium 9.4 mg/dL (8.6-10.3); Creatinine, Serum 0.89 mg/dL (0.51-0.95); Potassium 3.6 mmol/L (3.5-5.0); Total Bilirubin 0.5 mg/dL (0.2-1.0); Total Protein 7.2 g/dL (6.4-8.9)
[2024-05-08] MEDS: Lidocaine PATCH 5% PATCH TRANSDERM ONE (09:49)
[2024-05-08] MEDS: methylPREDNISolone SOD SUCC 125 mg 2 ML VIAL IV ONE (09:50)
[2024-05-08] MEDS: Orphenadrine Citrate INJ 30 mg/ml 2 ml VIAL (60 mg) IV ONE (09:50)
[2024-05-08 09:53] LABS: HCG Pregnancy 2.49 mIU/mL
[2024-05-08 10:31] LABS: Erythrocyte Sed Rate 25 mm/Hr (0-29)
[2024-05-08] MEDS: HYDROmorphone 1 MG/1 ML SYRINGE IV SLOW PU ONE ×3 (11:28→16:02)
[2024-05-08] MEDS ORDERED: Ondansetron 4 mg VIAL 2 MG/ML 2 ml VIAL IV PRN (13:07)
[2024-05-08] MEDS ORDERED: Naloxone Nasal Spray 4 MG/0.1 ML NASAL.SPR INTRANASAL PRN (13:12)
[2024-05-08] MEDS ORDERED: Magnesium Hydroxide LIQ 30 ML UDC PO PRN (13:13)
[2024-05-08] MEDS ORDERED: oxyCODONE/Acetamin 5/325 mg TAB PO PRN (13:43)
[2024-05-08] MEDS: Enoxaparin 40 MG/0.4 ML SYR SUBCUT SCH (15:00)
[2024-05-08] MEDS: oxyCODONE SR 20 mg TAB PO ONE (15:00)
[2024-05-08] MEDS: Acetaminophen IV 1 GM/100ML 1,000 MG/100 ML BAG IV SCH (15:01)
[2024-05-08 17:06] LABS: TSH Ultra Thyroid Stim Horm 0.38 mcIU/mL (0.34-5.60)
[2024-05-08 17:17] LABS: Folate 17.28 ng/mL (5.90-24.80)
[2024-05-08] MEDS: HYDROmorphone 0.5 MG/0.5 ML SYRINGE IV SLOW PU PRN ×2 (17:19→23:14)
[2024-05-08] MEDS: Senna TAB 8.6 mg TAB PO SCH (20:05)
[2024-05-08] MEDS: oxyCODONE SR 20 mg TAB PO SCH (20:06)
[2024-05-08] MEDS ORDERED: Naloxone 0.4 mg VIAL 0.4 mg/ml 1 ml VIAL IV PUSH PRN (23:02)
[2024-05-09 06:03] LABS: ABS Basophils 0.1 10^3/uL (0.0-0.1); ABS Lymphocytes 2.6 10^3/uL (1.0-4.8); ABS Monocytes 1.3 10^3/uL (0.0-0.9); ABS Neutrophils 11.5 10^3/uL (1.5-7.6); Eosinophil % 0.1 %; Hematocrit 43.5 % (35-45); Hemoglobin 13.8 g/dL (11.5-14.3); Lymphocyte % 16.7 %; Mean Corpuscular Hemoglobin 26.6 pg (27-33); Mean Corpuscular Hgb Conc 31.8 g/dL (31-36); Mean Corpuscular Volume 83.7 fL (80-97); Mean Platelet Volume 10.2 fL (7.5-11.2); Platelet Count 277 10^3/uL (150-450); Red Blood Count 5.19 10^6/uL (3.63-4.92); Red Cell Distribution Width 13.8 % (12-17); White Blood Count 15.5 10^3/uL (3.8-11.8)
[2024-05-09 06:42] LABS: Calcium 9.8 mg/dL (8.6-10.3); Magnesium 2.2 mg/dL (1.9-2.7); Potassium 4.1 mmol/L (3.5-5.0); eGFR CKD-EPI 66.9 (>60)
[2024-05-09] MEDS: HYDROmorphone 1 MG/1 ML SYRINGE IV SLOW PU PRN ×3 (10:22→15:12)
[2024-05-09] MEDS: Polyethylene Glycol 3350 17 GM PACKET PO SCH ×2 (11:51→20:42)
[2024-05-09] MEDS: Lidocaine PATCH 5% PATCH TRANSDERM SCH (14:26)
[2024-05-10 06:08] LABS: ABS Basophils 0.1 10^3/uL (0.0-0.1); ABS Lymphocytes 3.3 10^3/uL (1.0-4.8); ABS Monocytes 1.3 10^3/uL (0.0-0.9); ABS Neutrophils 8.2 10^3/uL (1.5-7.6); ABS Nucleated RBC 0.01 10^3/ul; Eosinophil % 0.1 %; Hematocrit 40.3 % (35-45); Mean Corpuscular Hemoglobin 27.5 pg (27-33); Mean Corpuscular Hgb Conc 32.3 g/dL (31-36); Mean Corpuscular Volume 84.9 fL (80-97); Mean Platelet Volume 10.2 fL (7.5-11.2); Nucleated Red Blood Cells % 0.1 %/100WBC (0.0-0.8); Platelet Count 239 10^3/uL (150-450); Red Blood Count 4.74 10^6/uL (3.63-4.92); Red Cell Distribution Width 13.7 % (12-17); White Blood Count 12.9 10^3/uL (3.8-11.8)
[2024-05-10 06:26] LABS: Calcium 9.4 mg/dL (8.6-10.3); Creatinine, Serum 0.96 mg/dL (0.51-0.95); Potassium 4.5 mmol/L (3.5-5.0); eGFR CKD-EPI 70.3 (>60)
[2024-05-10] MEDS: oxyCODONE SR 10 mg TAB PO ONE (10:10)
[2024-05-10] MEDS: HYDROmorphone 1 MG/1 ML SYRINGE IV SLOW PU PRN (11:32)
[2024-05-10] MEDS: oxyCODONE SR 15 mg TAB PO SCH (21:08)
[2024-05-12 06:46] LABS: Calcium 9.6 mg/dL (8.6-10.3); Creatinine, Serum 1.11 mg/dL (0.51-0.95); Potassium 4.7 mmol/L (3.5-5.0); eGFR CKD-EPI 59.1 (>60)
[2024-05-12] MEDS: Glycerin ADULT 2.4 gm SUPP PR ONE (15:29)
[2024-05-12] MEDS: HYDROmorphone 1 MG/1 ML SYRINGE IV SLOW PU ONE (18:24)
[2024-05-12] MEDS: Gadoteridol (CONTRAST) 279.3 MG/ML 10 ML IV ONE (20:00)
[2024-05-13 07:09] LABS: Creatinine, Serum 0.96 mg/dL (0.51-0.95); eGFR CKD-EPI 70.3 (>60)
[2024-05-13] MEDS: HYDROmorphone 1 MG/1 ML SYRINGE IV SLOW PU PRN (17:49)
[2024-05-15 07:03] LABS: Calcium 9.3 mg/dL (8.6-10.3); Creatinine, Serum 1.06 mg/dL (0.51-0.95); Potassium 4.6 mmol/L (3.5-5.0); eGFR CKD-EPI 62.4 (>60)
[2024-05-16 10:11] VITALS: BP 109/94
== END 2024-05-16 12:35 | disposition home or self-care (01) | DRG 566 ==
LOC: ED 08:12 → EDHOLD 08:12 → OBSVTOIN 13:07 → SUATTDRO 13:07 → MED 16:06
PROVIDERS: ADMIT Internal Medicine; ATTEND Hospitalist